=== PATIENT | female | born 1935 | race Hispanic/Latino ===

== ENCOUNTER 2017-04-20 16:35 | Emergency (ER) | payer MEDICARE ==
[~2017-04-20 16:35] MED LIST: Sodium Chloride 0.9% 1,000 ML IV ONE
[2017-04-20 16:36] VITALS: BMI 34.7
[2017-04-20 16:55] VITALS: TEMP 98; O2SAT 95
--- NOTE | 2017-04-20 17:26 | C.PDOC ---
History Of Present Illness 82 y/o female brought in by EMS presents to ED for evaluation of laceration to right lower leg. Pt states she accidentally kicked a coffee table with metal edge sustaining laceration [employer], near syncopal episode when she saw the blood. Pt reports difficulty controlling bleeding with compressions. Denies any other injury. Chief Complaint (Nursing): Abnormal Skin Integrity History Per: Patient History/Exam Limitations: no limitations Onset/Duration Of Symptoms: Mins Current Symptoms Are (Timing): Still Present Severity: Moderate Recent travel outside of the [place]: No Past Medical History Reviewed: Historical Data, Nursing Documentation, Vital Signs Vital Signs: Last Vital Signs Temp 98 F 04/20/17 16:47 Pulse 74 04/20/17 17:40 Resp 14 04/20/17 17:40 BP 132/63 04/20/17 17:40 Pulse Ox 95 04/20/17 17:40 - Medical History PMH: Cardia Arrhythmia Denies: Chronic Kidney Disease Surgical History: Cholecystectomy, Coronary Stent (2017) - [facility] Procedures BILAT REDUCT MAMMOPLASTY (08/11/05) PACKED CELL TRANSFUSION (08/11/05) Family History: States: Unknown Family Hx - Social History Hx Alcohol Use: No Hx Substance Use: No - Immunization History Hx Tetanus Toxoid Vaccination: No Hx Influenza Vaccination: No Review Of Systems Except As Marked, All Systems Reviewed And Found Negative. Skin: Positive for: Other (laceration to right lower leg) Physical Exam - Physical Exam Appears: Non-toxic, No Acute Distress Skin: Warm, Dry, No Rash, Other (2 cm skin tear to right lower leg, no active bleeding) Head: Atraumatic, Normacephalic Chest: Symmetrical Cardiovascular: Rhythm Regular, No Murmur Respiratory: Normal Breath Sounds, No Rales, No Rhonchi, No Wheezing Extremity: Normal ROM, Capillary Refill (<2 seconds), No Swelling Neurological/Psych: Oriented x3, Normal Speech, Normal Motor, Normal Sensation ED Course And Treatment O2 Sat by Pulse Oximetry: 95 (room air) Pulse Ox Interpretation: Normal Progress Note: small skin tear, aggregate 2 cm, bleeding resolved,. probably nicked a small varicosity. defer w/u w informed consent. Wound cleaned and bandaged. Medical Decision Making Medical Decision Making: ? brief vasovagal episode during the bleeding. arrived normal vs's and normal exam. Disposition Doctor Will See Patient In The: Office Counseled Patient/Family Regarding: Studies Performed, Diagnosis - Disposition Referrals: Madhu Orta MD [Medical Doctor] - Disposition: HOME/ ROUTINE Disposition Time: 17:25 Condition: GOOD Additional Instructions: keep small pressure bandage and elevate leg if bleeding occurs. continue normal blood thinners. Follow-up with your doctor as usual. Instructions: Skin Tear (ED) - Clinical Impression Clinical Impression: Skin tear - Scribe Statement The provider has reviewed the documentation as recorded by the Elisabeth Suresh Provider Attestation: All medical record entries made by the Elisabeth were at my direction and personally dictated by me. I have reviewed the chart and agree that the record accurately reflects my personal performance of the history, physical exam, medical decision making, and the department course for this patient. I have also personally directed, reviewed, and agree with the discharge instructions and disposition.
[2017-04-20] MEDS ORDERED: Bacitracin 500 Units/gm Oint Foilpak UD ONE (17:27)
[2017-04-20 17:41] VITALS: BP 132/63; PULSE 74; RESP 14
[2017-04-20] MEDS ORDERED: Bacitracin Ointment 30 GM TUBE TOP STA (17:43)
--- NOTE | 2017-04-24 11:10 | CARD ---
APPROVED REPORT EKG Measurement Heart [id number] <Conclusion> Normal sinus rhythm with sinus arrhythmia Moderate voltage criteria for LVH, may be normal variant Possible Lateral infarct, age undetermined Inferior infarct, age undetermined Abnormal ECG
== END 2017-04-20 18:11 | disposition home or self-care (01) ==
LOC: C.ER 16:35
DX: S81.811A Laceration without foreign body, right lower leg, initial encounter (principal); W22.03XA Walked into furniture, initial encounter
CPT/HCPCS: 96360; 99284; J7040

== ENCOUNTER 2018-08-23 19:44 | Inpatient (IN) | payer MEDICARE ==
[2018-08-23 19:44] VITALS: BMI 34.7
[2018-08-23 21:11] LABS: HEMOGLOBIN 11.1 g/dL (11.0-16.0); MEAN CELL VOLUME 85.4 fL (81.0-99.0); MEAN CORPUSCULAR HEMOGLOBIN 28.9 pg (27.0-31.0); RBC 3.85 Mil/uL (3.80-5.20); WHITE BLOOD COUNT 10.7 K/uL (4.8-10.8)
[2018-08-23 21:12] LABS: BASO # 0.1 K/uL (0.0-0.2); BASO % 0.9 % (0.0-2.0); EOS # 0.5 K/uL (0.0-0.7); EOS % 4.2 % (0.0-4.0); LYMPH # 1.1 K/uL (1.0-4.3); LYMPH % 10.5 % (20.0-40.0); MEAN CORPUSCULAR HGB CONC 33.9 g/dL (33.0-37.0); MONO # 0.8 K/uL (0.0-0.8); MONO % 7.5 % (0.0-10.0); NEUT # 8.2 K/uL (1.8-7.0); NEUT % 76.9 % (50.0-75.0); NRBC % 0.1 % (0.0-2.0); RED CELL DISTRIBUTION WIDTH 15.1 % (11.5-14.5)
[2018-08-23 21:23] LABS: INR 1.1; PROTHROMBIN TIME 12.4 SECONDS (9.7-12.2)
--- NOTE | 2018-08-23 21:23 | C.PDOC ---
History Of Present Illness 83 year old female, BIB son, presents to the ED for evaluation after experiencing two falls earlier in the weeks while sleeping. Patient was seen in the ED s/p first fall, however, today she complains of sharp RLQ pain. The patient also reports pain radiating to the area of bruising on her buttock. She denies any blood or dark stool. The patient has cadiac stents in place. As per son, the patient does not have a Hx of strokes. No hip pain. The patient denies any fever, nausea, vomiting or diarrhea. 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 Time Seen by Provider: 08/23/18 21:22 Chief Complaint (Nursing): Abdominal Pain History Per: Patient History/Exam Limitations: no limitations Onset/Duration Of Symptoms: Days Current Symptoms Are (Timing): Still Present Context: Other (Recent fall) Severity: Moderate Pain Scale Rating Of: 5 Location Of Pain/Discomfort: RLQ Quality Of Discomfort: Sharp Associated Symptoms: denies: Fever, Nausea, Vomiting Recent travel outside of the [place]: No Past Medical History Reviewed: Historical Data, Nursing Documentation, Vital Signs Vital Signs: Last Vital Signs Temp 98.5 F 08/23/18 20:19 Pulse 68 08/23/18 20:19 Resp 20 08/23/18 20:19 BP 165/68 H 08/23/18 20:19 Pulse Ox 96 08/23/18 20:19 - Medical History PMH: Cardia Arrhythmia, HTN Denies: Chronic Kidney Disease Surgical History: Cholecystectomy, Coronary Stent (2017) - [facility] Procedures BILAT REDUCT MAMMOPLASTY (08/11/05) PACKED CELL TRANSFUSION (08/11/05) Family History: States: Unknown Family Hx - Social History Hx Alcohol Use: No Hx Substance Use: No - Immunization History Hx Tetanus Toxoid Vaccination: No Hx Influenza Vaccination: No Hx Pneumococcal Vaccination: No Review Of Systems Constitutional: Negative for: Fever, Chills Eyes: Negative for: Pain ENT: Negative for: Ear Pain Cardiovascular: Negative for: Chest Pain, Palpitations, Orthopnea, Edema Respiratory: Negative for: Cough, SOB with Excertion, Pleuritic Pain Gastrointestinal: Positive for: Abdominal Pain (RLQ). Negative for: Nausea, Vomiting, Diarrhea, Melena, Other (bloody stool) Genitourinary: Negative for: Dysuria, Frequency, Incontinence, Hematuria, Vaginal Discharge, Vaginal Bleeding Musculoskeletal: Negative for: Neck Pain, Shoulder Pain Skin: Positive for: Bruising (from previous falls). Negative for: Rash, Lesions Neurological: Negative for: Weakness Psych: Negative for: Anxiety Physical Exam - Physical Exam Appears: Non-toxic, No Acute Distress Skin: Warm, Dry, Ecchymosis (and contusions to right side of face and on b/l buttock) Head: Normacephalic Eye(s): bilateral: Normal Inspection, PERRL, EOMI Oral Mucosa: Moist Lips: Normal Appearing, No Swelling, No Contusion Throat: No Erythema Neck: Trachea Midline, Supple, Other (No meningeal signs- negative kernig's and brudzinskis) Chest: Symmetrical Cardiovascular: Rhythm Regular, No Friction Rub Respiratory: Normal Breath Sounds, No Rales, No Rhonchi, No Wheezing Gastrointestinal/Abdominal: Soft (RLQ), Tenderness, No Organomegaly, No Mass, No Distention Back: No CVA Tenderness, No Vertebral Tenderness, No Decreased ROM Extremity: Normal ROM, No Tenderness, No Calf Tenderness Extremity: Bilateral: Normal Color And Temperature Pulses: Left Dorsalis Pedis: Normal, Right Dorsalis Pedis: Normal Neurological/Psych: Oriented x3, Normal Speech, Normal Cognition, Normal Cranial Nerves, No Cerebellar Signs, Normal Motor, Normal Sensation Gait: Steady Extremity: Right: No Drift, Left: No Drift, Upper: No Drift, Lower: No Drift ED Course And Treatment - Laboratory Results Result Diagrams: 08/23/18 21:08 08/23/18 21:08 O2 Sat by Pulse Oximetry: 96 (RA) Pulse Ox Interpretation: Normal Medical Decision Making Medical Decision Making: Impression: 83 y/o female who experienced 2 falls earlier in the week complains of sharp, RLQ pain. No vaginal bleeding, no dark or bloody stool. Contusion noted to b/l buttocks. No signs of skin breakdown. Full ROM to b/l hips w/ out pain. Good n/v status distal. Given Abd pain will seek CT, as well as CT head for recent fall. No other pain besides RLQ pain. Plan: -CT abdomen and pelvis -CT w/o contrast -Creatine -Lipase -Troponin I labs unremarkable CTH unremarkable CTAP Diffuse mesenteric lymphadenitis no wbc no fever, but given recurrent falls will seek obs for eval endorsed to pt and family of liver cyst and ct findings- to be evaluated appreciate consultation w/ Dr. Gunter: to obs to his service Disposition - Disposition Disposition Time: 00:30 Condition: GOOD Forms: [facility] (Armenian) - Clinical Impression Clinical Impression: Falls, Mesenteric lymphadenitis - Scribe Statement The provider has reviewed the documentation as recorded by the Elisabeth Patel Provider Attestation: All medical record entries made by the Elisabeth were at my direction and personally dictated by me. I have reviewed the chart and agree that the record accurately reflects my personal performance of the history, physical exam, medical decision making, and the department course for this patient. I have also personally directed, reviewed, and agree with the discharge instructions and disposition.
[2018-08-23 21:24] LABS: ALB/GLOB RATIO 1.5 (1.0-2.1); ALBUMIN 3.8 g/dL (3.5-5.0); ALT/SGPT 34 U/L (9-52); AST/SGOT 31 U/L (14-36); BLOOD UREA NITROGEN 26 mg/dL (7-17); GFR NON-AFRICAN AMERICAN > 60
[2018-08-23 21:26] LABS: SQUAMOUS EPITHIAL 8 /hpf (0-5); URINE BACTERIA RARE (<OCC); URINE BILIRUBIN NEGATIVE (NEGATIVE); URINE BLOOD NEGATIVE (NEGATIVE); URINE CLARITY Clear (Clear); URINE COLOR Yellow (YELLOW); URINE GLUCOSE (UA) NORMAL (Normal); URINE LEUKOCYTE ESTERASE NEG Leu/uL (Negative); URINE PROTEIN NEGATIVE (NEGATIVE)
[2018-08-23 22:20] LABS: LIPASE 332 U/L (23-300)
[2018-08-23] MEDS ORDERED: Iodixanol 320 MG/ML 100 ML BOTTLE IV ONE (22:33)
--- NOTE | 2018-08-24 07:55 | CT ---
Date of service: 08/23/2018 PROCEDURE: CT HEAD WITHOUT CONTRAST. HISTORY: Head injury. COMPARISON: None available. TECHNIQUE: Axial computed tomography images were obtained through the head/brain without intravenous contrast. Radiation dose: Total exam DLP = 1013.12 mGy-cm. This CT exam was performed using one or more of the following dose reduction techniques: Automated exposure control, adjustment of the mA and/or kV according to patient size, and/or use of iterative reconstruction technique. FINDINGS: HEMORRHAGE: No intracranial hemorrhage. BRAIN: No mass effect or edema. Scattered focal lucencies in the subcortical and periventricular white matter suggestive for chronic microvascular ischemic change. Focal hypodensity seen within the left caudate head suggestive for chronic infarct with some focal mild ex vacuo dilatation of the anterior horn of the left lateral ventricle. Mild cerebral and cerebellar atrophy. VENTRICLES: Unremarkable. No hydrocephalus. CALVARIUM: Unremarkable. PARANASAL SINUSES: Unremarkable as visualized. No significant inflammatory changes. MASTOID AIR CELLS: Unremarkable as visualized. No inflammatory changes. OTHER FINDINGS: None. IMPRESSION: No acute intracranial abnormality. Chronic microvascular ischemic changes. Atrophy. Focal hypodensity seen within the left caudate head suggestive for chronic infarct with some focal mild ex vacuo dilatation of the anterior horn of the left lateral ventricle. If symptoms persist, consider correlation with MRI. A preliminary report was generated at 10:56 p.m. on 08/23/[address] Wolfgang Trujillo from [facility].
[2018-08-24] MEDS ORDERED: Home Med 1 UNIT (Meloxicam [Mobic] 7.5 MG) PO SCH (10:00)
[2018-08-24] MEDS ORDERED: Losartan 12.5 MG TAB PO SCH (10:00)
--- NOTE | 2018-08-24 10:20 | CT ---
Date of service: 08/23/2018 PROCEDURE: CT Abdomen and Pelvis with contrast HISTORY: buttocks pain, fall COMPARISON: CT scan of the abdomen and pelvis dated 07/26/2016. TECHNIQUE: Contrast dose: 100 mL Visipaque 320 Radiation dose: Total exam DLP = 805.72 mGy-cm. This CT exam was performed using one or more of the following dose reduction techniques: Automated exposure control, adjustment of the mA and/or kV according to patient size, and/or use of iterative reconstruction technique. FINDINGS: LOWER THORAX: Cardiomegaly. Coronary arterial and valvular calcifications. Bibasilar atelectasis/scarring. Trace right pleural effusion. LIVER: Stable 3.6 cm medial right hepatic lobe and 1.0 cm inferior right hepatic lobe cysts. No gross lesion or ductal dilatation. GALLBLADDER AND BILE DUCTS: Prior cholecystectomy with surgical clips in place. PANCREAS: Unremarkable. No gross lesion or ductal dilatation. SPLEEN: Unremarkable. ADRENALS: Unremarkable. No mass. KIDNEYS AND URETERS: Stable 1.0 cm right lower pole cyst. No hydronephrosis. No solid mass. VASCULATURE: Unremarkable. No aortic aneurysm. Aortic atherosclerotic calcification and mural plaque present. BOWEL: Small hiatal hernia. Colonic diverticulosis. No obstruction. No gross mural thickening. APPENDIX: Normal appendix. PERITONEUM: Stable faint, subtle hazy change within the central mesentery. No free fluid. No free air. LYMPH NODES: Unremarkable. No enlarged lymph nodes. BLADDER: Unremarkable. REPRODUCTIVE: Prior hysterectomy. Pelvic floor prolapse. BONES: No acute fracture. Multilevel spinal degenerative changes OTHER FINDINGS: None. IMPRESSION: No acute abdominal pelvic pathology. Stable appearance of faint, subtle hazy change within the central mesentery. This is a nonspecific finding which can be seen with mesenteric edema, lymphedema, hemorrhage and infiltration with inflammatory or neoplastic cells. Additional stable findings as above.
[2018-08-24] MEDS: Enoxaparin 40 mg Syringe SC SCH (11:16)
[2018-08-24 11:21] LABS: HDL CHOLESTEROL 57 mg/dL (30-70)
[2018-08-24 11:39] LABS: LDL CHOLESTEROL < 30 mg/dL (0-129)
--- NOTE | 2018-08-24 14:37 | CP.PCM.CON ---
History of Present Illness - History of Present Illness History of Present Illness: COMPREHENSIVE CONSULT HPI 83 years old woman was brought to the emergency room by the son with a history of frequent falls with multiple contusion on the face and torso. Patient is vague about the exact events of dizziness and falling In March 2018 patient had a laceration of the lower extremity patient was evaluated in the ER at that time patient also had a syncopal episode which was labeled as vasovagal secondary to bleeding from the lower extremity Currently patient has no chest pain dizziness or any cardiac arrhythmias Patient has a history of coronary artery stent for full details currently is not available Patient also had a right lower quadrant pain and the CAT scan of the abdomen showed haziness in the mesentery PAST HIST. PERSONAL HIST: Smoking. N Alcohol. N Allergy N Travel_- . FAMILY HIST : ROS : Constitutional: Negative for weight change, chills, night sweats, Eyes: Negative for redness, swelling, itching, discharge, vision changes, blurry vision, double vision, glaucoma, cataracts, Ears: Negative for hearing loss, ringing, , tinnitus, vertigo Nose: Negative for rhinorrhea, stuffiness, sniffing, itching, postnasal drip, discoloration, nasal congestion and epistaxis. Throat: Negative for throat clearing, sore throat, hoarseness, difficulty swallowing and difficulty speaking. Respiratory: Negative for cough, , sputum production, chest tightness, wheezing, pleuritic chest pain ,daytime somnolence, chronic cough, hemoptysis, snoring at night, Cardiovascular: Negative for chest pain, palpitations, orthopnea, PND, Edema of legs, leg cramps, angina, claudication, , irregular heartbeat, Neurology: Negative for irritability, muscle weakness, numbness and tingling, seizures, tremors, migraines, slurred speech, , mood changes, recurrent headaches Gastrointestinal: Negative for difficulty swallowing, diarrhea, constipation, black stools, rectal bleeding, nausea, flatulence, reflux, poor appetite, changes in bowel habits, abdominal pain Genitourinary: Negative for frequent urination, hematuria, discharge, incontinence, urinary retention, frequent UTI, Psychiatric: Negative for depression, anxiety/panic, suicidal tendencies, Musculoskeletal: Negative for swollen joints, back pain, , neck pain, morning stiffness of joints, . Skin: Negative for rash, ulcers, itching, dry skin and pigmented lesions. P/E: Constitutional: Appears stated age and in no apparent distress. Head: Normocephalic. Ears: External ear canals patent without inflammation. Tympanic membranes intact with normal light reflex and landmark. Eyes: Pupils are central, bilaterally equal, symmetrical and reacts to light with normal movements and no icterus or pallor. Nose: External nares are patent. Mucosa is pink Mouth-Throat: Good general appearance and condition. No post-pharyngeal/oropharyngeal erythema and tonsillar hypertrophy. Good dental hygiene. Neck-Lymphatic: Neck is supple with normal ROM, no thyromegaly, lymph nodes or masses. JVD is normal with no carotid bruit. Lungs: Clear to percussion and auscultation with bilateral normal air entry. Cardiovascular: S1 and S2 are normal with no murmurs, gallops and rub. GI Exam: No hepatomegaly. Abdomen is soft and non-tender. No Organomegaly , masses or hernias are evident and bowel sounds are normal and active. Neurology: Higher function and all cranial nerves intact, with no gross motor or sensory deficit. Superficial and deep reflexes are normal with downwards planters. No cerebellar deficit with normal gait. Musculoskeletal: No tender spots with normal curvature of the spine with no swelling or restricted ROM of the small and large joints. There are multiple contusions on the face upper and lower extremities with stitches on the left elbow Extremities: Homans sign absent. Intact pulses with no pitting edema, calf tenderness or skin color changes. Skin: No rash, eruptions or abnormal skin pigmentation LAB/RADIOLOGY: ASSESMENT : Recurrent fall with history of coronary artery disease to rule out cardiac arrhythmias Rule out TIA Workup for the right lower quadrant pain PLAN: Neuro cardiac workup continue present medication. Past Patient History - Past Social History Smoking Status: Never Smoked - CARDIAC Hx Hypertension: Yes - PULMONARY Hx Respiratory Disorders: No - NEUROLOGICAL Hx Neurological Disorder: No - HEENT Hx HEENT Problems: Yes Hx Glaucoma: Yes - RENAL Hx Chronic Kidney Disease: No - ENDOCRINE/METABOLIC Hx Endocrine Disorders: No - HEMATOLOGICAL/ONCOLOGICAL Hx Blood Disorders: No - INTEGUMENTARY Hx Dermatological Problems: No - MUSCULOSKELETAL/RHEUMATOLOGICAL Hx Musculoskeletal Disorders: No Hx Falls: Yes - GASTROINTESTINAL Hx Gastrointestinal Disorders: No - PSYCHIATRIC Hx Substance Use: No - SURGICAL HISTORY Hx Cholecystectomy: Yes Hx Coronary Stent: Yes (2017) - ANESTHESIA Hx Anesthesia: Yes Hx Anesthesia Reactions: No Meds Allergies/Adverse Reactions: Allergies Allergy/AdvReac Type Severity Reaction Status Date / Time No Known Allergies Allergy Unverified 08/23/18 20:24 - Medications Medications: Current Medications Aspirin (Ecotrin) 81 mg PO DAILY [facility] Last Admin: 08/24/18 11:16 Dose: 81 mg Enoxaparin Sodium (Lovenox) 40 mg SC DAILY [facility] Last Admin: 08/24/18 11:16 Dose: 40 mg Escitalopram Oxalate (Lexapro) 5 mg PO DAILY [facility] Last Admin: 08/24/18 11:16 Dose: 5 mg Home Med (Meloxicam [Mobic]) 7.5 mg PO DAILY [facility] Influenza Virus Vaccine (Fluzone Quad [id number]) 60 mcg IM .ONCE ONE Stop: 08/25/18 10:01 Losartan Potassium (Cozaar) 25 mg PO DAILY [facility] Pneumococcal Polyvalent Vaccine (Pneumovax 23 Vaccine) 0.5 ml IM .ONCE ONE Stop: 08/25/18 10:01 Rosuvastatin Calcium (Crestor) 5 mg PO [facility] Results - Vital Signs Recent Vital Signs: Last Vital Signs Temp 98 F 08/24/18 07:49 Pulse 68 08/24/18 08:00 Resp 18 08/24/18 07:49 BP 164/93 H 08/24/18 07:49 Pulse Ox 97 08/24/18 07:49 - Labs Result Diagrams: 08/23/18 21:08 08/23/18 21:08 Labs: Laboratory Results - last 24 hr 08/23/18 08/23/18 08/23/18 21:08 21:08 21:08 WBC 10.7 RBC 3.85 Hgb 11.1 D Hct 32.9 L MCV 85.4 D MCH 28.9 MCHC 33.9 RDW 15.1 H Plt Count 235 MPV 9.0 Neut % (Auto) 76.9 H Lymph % (Auto) 10.5 L [place] % (Auto) 7.5 Eos % (Auto) 4.2 H Baso % (Auto) 0.9 Neut # (Auto) 8.2 H Lymph # (Auto) 1.1 [place] # (Auto) 0.8 Eos # (Auto) 0.5 Baso # (Auto) 0.1 PT INR APTT Sodium 138 Potassium 4.7 Chloride 102 Carbon Dioxide 27 Anion Gap 14 BUN 26 H Creatinine 0.8 Est GFR ( Amer) > 60 Est GFR (Non-Af Amer) > 60 Random Glucose 143 H Calcium 9.0 Phosphorus 4.0 Magnesium 2.1 Total Bilirubin 0.8 AST 31 ALT 34 Alkaline Phosphatase 51 Total Creatine Kinase Troponin I < 0.0120 Total Protein 6.3 Albumin 3.8 Globulin 2.5 Albumin/Globulin Ratio 1.5 Triglycerides Cholesterol LDL Cholesterol Direct HDL Cholesterol Lipase Carcinoembryonic Ag CA 19-9 Antigen CA 125 Antigen Urine Color Yellow Urine Clarity Clear Urine pH 5.0 Ur Specific [place] 1.023 Urine Protein Negative Urine Glucose (UA) Normal Urine Ketones Negative Urine Blood Negative Urine Nitrate Negative Urine Bilirubin Negative Urine Urobilinogen 2.0 H Ur Leukocyte Esterase Neg Urine WBC (Auto) 1 Urine RBC (Auto) 2 Ur Squamous Epith Cells 8 H Urine Bacteria Rare 08/23/18 08/23/18 08/24/18 21:08 22:12 10:50 WBC RBC Hgb Hct MCV MCH MCHC RDW Plt Count MPV Neut % (Auto) Lymph % (Auto) [place] % (Auto) Eos % (Auto) Baso % (Auto) Neut # (Auto) Lymph # (Auto) [place] # (Auto) Eos # (Auto) Baso # (Auto) PT 12.4 H INR 1.1 APTT 32 Sodium Potassium Chloride Carbon Dioxide Anion Gap BUN Creatinine Est GFR ( Amer) Est GFR (Non-Af Amer) Random Glucose Calcium Phosphorus Magnesium Total Bilirubin AST ALT Alkaline Phosphatase Total Creatine Kinase 66 41 Troponin I < 0.0120 Total Protein Albumin Globulin Albumin/Globulin Ratio Triglycerides 82 Cholesterol 94 LDL Cholesterol Direct < 30 HDL Cholesterol 57 Lipase 332 H Carcinoembryonic Ag 2.8 CA 19-9 Antigen 9.9 CA 125 Antigen 17.2 Urine Color Urine Clarity Urine pH Ur Specific [place] Urine Protein Urine Glucose (UA) Urine Ketones Urine Blood Urine Nitrate Urine Bilirubin Urine Urobilinogen Ur Leukocyte Esterase Urine WBC (Auto) Urine RBC (Auto) Ur Squamous Epith Cells Urine Bacteria
[2018-08-24 14:49] LABS: CK-MB 0.85 ng/mL (0.0-3.38)
[2018-08-24 16:13] VITALS: RESP 20
--- NOTE | 2018-08-24 20:06 | CP.PCM.HP ---
Past Patient History - Past Medical History & Family History Past Medical History?: Yes - Past Social History Smoking Status: Never Smoked - CARDIAC Hx Cardiac Disorders: Yes Hx Hypertension: Yes - PULMONARY Hx Respiratory Disorders: No - NEUROLOGICAL Hx Neurological Disorder: No - HEENT Hx HEENT Problems: Yes Hx Glaucoma: Yes - RENAL Hx Chronic Kidney Disease: No - ENDOCRINE/METABOLIC Hx Endocrine Disorders: No - HEMATOLOGICAL/ONCOLOGICAL Hx Blood Disorders: No - INTEGUMENTARY Hx Dermatological Problems: No - MUSCULOSKELETAL/RHEUMATOLOGICAL Hx Musculoskeletal Disorders: No Hx Falls: Yes - GASTROINTESTINAL Hx Gastrointestinal Disorders: No - PSYCHIATRIC Hx Substance Use: No - SURGICAL HISTORY Hx Surgeries: Yes Hx Cholecystectomy: Yes Hx Coronary Stent: Yes (2016) - ANESTHESIA Hx Anesthesia: Yes Hx Anesthesia Reactions: No Meds Allergies/Adverse Reactions: Allergies Allergy/AdvReac Type Severity Reaction Status Date / Time No Known Allergies Allergy Unverified 08/23/18 20:24 Results - Vital Signs Recent Vital Signs: Last Vital Signs Temp 983 F H 08/24/18 15:00 Pulse 79 08/24/18 16:00 Resp 20 08/24/18 15:00 BP 165/63 H 08/24/18 15:00 Pulse Ox 94 L 08/24/18 16:00 - Labs Result Diagrams: 08/23/18 21:08 08/23/18 21:08 Labs: Laboratory Results - last 24 hr 08/23/18 08/23/18 08/23/18 21:08 21:08 21:08 WBC 10.7 RBC 3.85 Hgb 11.1 D Hct 32.9 L MCV 85.4 D MCH 28.9 MCHC 33.9 RDW 15.1 H Plt Count 235 MPV 9.0 Neut % (Auto) 76.9 H Lymph % (Auto) 10.5 L [place] % (Auto) 7.5 Eos % (Auto) 4.2 H Baso % (Auto) 0.9 Neut # (Auto) 8.2 H Lymph # (Auto) 1.1 [place] # (Auto) 0.8 Eos # (Auto) 0.5 Baso # (Auto) 0.1 PT INR APTT Sodium 138 Potassium 4.7 Chloride 102 Carbon Dioxide 27 Anion Gap 14 BUN 26 H Creatinine 0.8 Est GFR ( Amer) > 60 Est GFR (Non-Af Amer) > 60 Random Glucose 143 H Calcium 9.0 Phosphorus 4.0 Magnesium 2.1 Total Bilirubin 0.8 AST 31 ALT 34 Alkaline Phosphatase 51 Total Creatine Kinase CK-MB (Mass) Troponin I < 0.0120 Total Protein 6.3 Albumin 3.8 Globulin 2.5 Albumin/Globulin Ratio 1.5 Triglycerides Cholesterol LDL Cholesterol Direct HDL Cholesterol Lipase Carcinoembryonic Ag CA 19-9 Antigen CA 125 Antigen Urine Color Yellow Urine Clarity Clear Urine pH 5.0 Ur Specific [place] 1.023 Urine Protein Negative Urine Glucose (UA) Normal Urine Ketones Negative Urine Blood Negative Urine Nitrate Negative Urine Bilirubin Negative Urine Urobilinogen 2.0 H Ur Leukocyte Esterase Neg Urine WBC (Auto) 1 Urine RBC (Auto) 2 Ur Squamous Epith Cells 8 H Urine Bacteria Rare 08/23/18 08/23/18 08/24/18 21:08 22:12 10:50 WBC RBC Hgb Hct MCV MCH MCHC RDW Plt Count MPV Neut % (Auto) Lymph % (Auto) [place] % (Auto) Eos % (Auto) Baso % (Auto) Neut # (Auto) Lymph # (Auto) [place] # (Auto) Eos # (Auto) Baso # (Auto) PT 12.4 H INR 1.1 APTT 32 Sodium Potassium Chloride Carbon Dioxide Anion Gap BUN Creatinine Est GFR ( Amer) Est GFR (Non-Af Amer) Random Glucose Calcium Phosphorus Magnesium Total Bilirubin AST ALT Alkaline Phosphatase Total Creatine Kinase 66 41 CK-MB (Mass) Troponin I < 0.0120 Total Protein Albumin Globulin Albumin/Globulin Ratio Triglycerides 82 Cholesterol 94 LDL Cholesterol Direct < 30 HDL Cholesterol 57 Lipase 332 H Carcinoembryonic Ag 2.8 CA 19-9 Antigen 9.9 CA 125 Antigen 17.2 Urine Color Urine Clarity Urine pH Ur Specific [place] Urine Protein Urine Glucose (UA) Urine Ketones Urine Blood Urine Nitrate Urine Bilirubin Urine Urobilinogen Ur Leukocyte Esterase Urine WBC (Auto) Urine RBC (Auto) Ur Squamous Epith Cells Urine Bacteria 08/24/18 14:08 WBC RBC Hgb Hct MCV MCH MCHC RDW Plt Count MPV Neut % (Auto) Lymph % (Auto) [place] % (Auto) Eos % (Auto) Baso % (Auto) Neut # (Auto) Lymph # (Auto) [place] # (Auto) Eos # (Auto) Baso # (Auto) PT INR APTT Sodium Potassium Chloride Carbon Dioxide Anion Gap BUN Creatinine Est GFR ( Amer) Est GFR (Non-Af Amer) Random Glucose Calcium Phosphorus Magnesium Total Bilirubin AST ALT Alkaline Phosphatase Total Creatine Kinase 39 CK-MB (Mass) 0.85 Troponin I < 0.0120 Total Protein Albumin Globulin Albumin/Globulin Ratio Triglycerides Cholesterol LDL Cholesterol Direct HDL Cholesterol Lipase Carcinoembryonic Ag CA 19-9 Antigen CA 125 Antigen Urine Color Urine Clarity Urine pH Ur Specific [place] Urine Protein Urine Glucose (UA) Urine Ketones Urine Blood Urine Nitrate Urine Bilirubin Urine Urobilinogen Ur Leukocyte Esterase Urine WBC (Auto) Urine RBC (Auto) Ur Squamous Epith Cells Urine Bacteria
--- NOTE | 2018-08-24 21:26 | CARD ---
APPROVED REPORT Date of service: 08/23/2018 EKG Measurement Heart [id number] <Conclusion> Sinus rhythm with marked sinus arrhythmia Voltage criteria for left ventricular hypertrophy Abnormal ECG
--- NOTE | 2018-08-25 06:01 | HP ---
CHIEF COMPLAINT: Fall. HISTORY OF PRESENT ILLNESS: This is an 83-year-old female with history of hypertension. The patient is a poor historian and not able to give enough information. I spoke to her son. According to son, two years ago the patient had a stroke. She was told that it is an ischemic stroke. The stroke affected her gait, her memory, her speech, and vision. Since then, she has been followed up by a doctor. She has been taking medications. She has been compliant with diet, medication and followup. In 03/2018, she had a laceration to left lower extremity. At that time, the patient was seen in the emergency room. She told the doctor that the patient had a syncopal episode and was considered to be vasovagal syncope. The patient was sent home. According to her, she had a fall. The patient had multiple falls. She denies any dizziness, chest pain, or shortness of breath. She denies any nausea, vomiting, or diarrhea. She denies any polyuria, polydipsia, or polyphagia. She denies any sneezing, itchy eyes, itchy nose. She denies any diplopia. She denies any history of vertigo. According to the patient, she had a bruise and hematoma on the face. According to the patient, she has joint pain, leg pain, and knee pain. She denies any tingling, numbness, or paresthesia. She denies any speech problems. She denies any history of loss of vision. She denies any history of abdominal pain, nausea, vomiting, or diarrhea. She denies any history of urinary complaints. At times, she is continent of urine and at times she is incontinent. She denies any history of sore throat, hoarseness, difficulty swallowing and speech. She denies any history of irritability, muscle weakness, numbness, tingling, seizure, tremor, migraine, slurring speech, mood changes, recurrent headache. She denies any history of dysphagia, nausea, vomiting, or diarrhea. She denies any rectal bleeding or any change in bowel habits. PAST MEDICAL HISTORY: Hypertension, CVA, hyperlipidemia. SOCIAL HISTORY: Nonsmoker, non-EtOH user. CURRENT MEDICATIONS: At home, she is on Cozaar, aspirin, Mobic, Crestor, Lexapro. PHYSICAL EXAMINATION: GENERAL: An elderly female, in no acute distress with periorbital bruising. VITAL SIGNS: Blood pressure 165/63, pulse 79, respiratory rate 20, temperature 98.3. SKIN: She has multiple bruises on the face. HEENT: Evidence of trauma. Normocephalic. Negative pallor. Negative jaundice. Extraocular movements are intact. NECK: Supple. No JVD. CHEST WALL: Bilateral symmetrical expansion. BREASTS: No masses. No nipple discharge. LUNGS: Clear. No rales. No rhonchi. Bilateral equal air entry. CARDIOVASCULAR SYSTEM: S1 and S2 are regular. No heave, no thrill, no murmur. ABDOMEN: Soft, nontender. Bowel sounds are positive. No organomegaly. GENITOURINARY: No rectal masses. No hemorrhoids. CENTRAL NERVOUS SYSTEM: The patient is awake, alert, and oriented x3. Cranial nerves II through XII are normal. Power 5/5 x4. Plantars are downgoing. The patient is slow to walk, but she is able to walk. MUSCULOSKELETAL: There is no evidence of any spine deformity or joint damage. EXTREMITIES: No clubbing, cyanosis, or edema. ASSESSMENT: 1. Fall, most likely it is a mechanical fall. I spoke to sons. They do not think the patient complaints of any vertigo and they do agree that the patient probably needs a cane or a walker depending on her needs. 2. Hypertension. 3. Hyperlipidemia. PLAN: Admit. Details orders written. Seen and examined. Seamus Gunter MD
[2018-08-25 08:22] VITALS: O2SAT 96
[2018-08-25] MEDS ORDERED: Pneumococcal 23-Valent Vaccine IM ONE ×2 (10:00→12:53)
[2018-08-25] MEDS ORDERED: Home Med 1 UNIT (Meloxicam [Mobic] 7.5 MG) PO SCH (10:00)
[2018-08-25] MEDS ORDERED: Influenza Vaccine 60 MCG/0.5 ML SYR (3 yr & up) IM ONE ×2 (10:00→12:52)
[2018-08-25] MEDS: Enoxaparin 40 mg Syringe SC SCH (10:13)
--- NOTE | 2018-08-25 11:37 | PN ---
DATE: 08/25/2018 LOCATION: 665, bed B. SUBJECTIVE: This is an 83-year-old female seen and examined initially for GI consultation on 08/24/2018, reexamined again today with a complaint of right-sided facial pain as well as intermittent abdominal and lower back pain with less oral intake recently, but no actual chest pain, palpitation, or significant shortness of breath this morning. The entire chart is reviewed including but not limited to most recent lab and radiology study results, current and the previous medication list, current and the previous medical events. Today's lab results still pending; however, the patient reported to have normal troponin level and normal cancer markers but lipase of 332, elevated. PHYSICAL EXAMINATION: GENERAL: An 83-year-old female, awake, alert and oriented, complaining of abdominal pain. VITAL SIGNS: The patient is afebrile with pulse of 66, respiratory rate 20 to 22, blood pressure of 160/74. HEENT: Ecchymotic changes and stitches at the right facial side. LYMPH NODES: No lymphadenitis or lymphadenopathy. ABDOMEN: Soft with mild generalized tenderness. No mass or organomegaly. No rebound tenderness or guarding, but abdominal distention. EXTREMITIES: Without significant clubbing, cyanosis or edema. NEUROLOGIC: No reported new neurological deficits, sensory or motor. LABORATORY DATA: Official report of the CAT scan of the abdomen and pelvis is seen. IMPRESSION: 1. Status post fall. 2. Mild anemia that could be secondary to chronic disease. No evidence of active gastrointestinal bleeding. 3. Known history of hypertension with cardiac arrhythmias. 4. Coronary artery disease with status post cardiac stent insertion. 5. Status post cholecystectomy. 6. Re-exacerbation of peptic ulcer disease. 7. Hyperglycemia by recent history. SUGGESTIONS: 1. Continue current management. 2. Guaiac all the stools daily x3. 3. Due to the abnormal CAT scan of the abdomen and pelvis, Hematology/Oncology evaluation to be considered. Geovany Leyva MD
--- NOTE | 2018-08-25 14:36 | CP.PCM.PN ---
Subjective - Date & Time of Evaluation Date of Evaluation: 08/25/18 Time of Evaluation: 14:29 - Subjective Subjective: CHIEF COMPLAINTS TODAY : Patient offers no specific cardiac complaints. ROS. HEENT : N. Resp : No cough, wheezing ,pleuritic CP ,or hemoptysis Cardio : No anginal CP, PND, orthopnea, palpitation GI : No n/v ,diarrhea or GI bleeding . SPECIALTY COOK : No headache, vertigo, focal deficit. Musculoskel : No joint swelling , Derm : No rash Psych : Normal affect. Ext : No swelling ,calf pain PE. Pt. is alert awake in no distress. V.S As noted in the chart Head ,ear nose,throat and eyes : Normal. Neck : Supple with normal carotids. Lungs: Clear air entry. Heart : S1 & S2 normal with S4. No murmur. Abd : Soft non tender with normal bowel sounds. Neuro : Moves all ext. with no localized deficit. Ext : No edema with intact pulses.Non tender calves multiple bruises on the face and the right side of extremities with stitches on the elbow Derm : No rashes or decubitus ulcer. LABS/RADIOLOGY: 3 sets of troponin are negative ASSESSMENT/PLAN : Check echo report Cardiac monitoring shows no cardiac arrhythmia. Objective - Vital Signs/Intake and Output Vital Signs (last 24 hours): Temp Pulse Resp BP Pulse Ox 97.4 F L 65 20 154/57 H 96 08/25/18 08:20 08/25/18 12:57 08/25/18 08:20 08/25/18 08:20 08/25/18 08:20 Intake and Output: 08/25/18 08/25/18 11:59 23:59 Intake Total 100 Balance 100 - Medications Medications: Current Medications Acetaminophen (Tylenol 325mg Tab) 650 mg PO Q6 PRN PRN Reason: Pain, moderate (4-7) Last Admin: 08/24/18 21:40 Dose: 650 mg Aspirin (Ecotrin) 81 mg PO DAILY [facility] Last Admin: 08/25/18 10:12 Dose: 81 mg Enoxaparin Sodium (Lovenox) 40 mg SC DAILY [facility] Last Admin: 08/25/18 10:13 Dose: 40 mg Escitalopram Oxalate (Lexapro) 5 mg PO DAILY [facility] Last Admin: 08/25/18 10:13 Dose: 5 mg Home Med (Meloxicam [Mobic]) 7.5 mg PO DAILY [facility] Losartan Potassium (Cozaar) 50 mg PO DAILY [facility] Last Admin: 08/25/18 10:12 Dose: 50 mg Rosuvastatin Calcium (Crestor) 5 mg PO HS [facility] Last Admin: 08/24/18 21:40 Dose: 5 mg - Labs Labs: 08/23/18 21:08 08/23/18 21:08 PT 12.4 SECONDS (9.7-12.2) H 08/23/18 21:08 INR 1.1 08/23/18 21:08 APTT 32 SECONDS (21-34) 08/23/18 21:08
--- NOTE | 2018-08-25 15:10 | CARD ---
APPROVED REPORT Date of service: 08/24/2018 EXAM: Two-dimensional and M-mode echocardiogram with Doppler and color Doppler. INDICATION Syncope 2D DIMENSIONS IVSd0.9 (0.7-1.1cm)LVDd4.9 (3.9-5.9cm) LVOT Diameter1.8 (1.8-2.4cm)PWd0.9 (0.7-1.1cm) LA Trkzdx33 (18-58mL)LVDs2.7 (2.5-4.0cm) FS (%) 46.2 %LVEF (%)77.4 (>50%) LVEF (Corey's)66.93 % M-Mode DIMENSIONS Left Atrium (MM)5.03 (2.5-4.0cm)IVSd1.07 (0.7-1.1cm) Aortic Root3.14 (2.2-3.7cm)LVDd5.56 (4.0-5.6cm) Aortic Cusp Exc.1.91 (1.5-2.0cm)PWd1.02 (0.7-1.1cm) FS (%) 41 %LVDs3.28 (2.0-3.8cm) LVEF (%)71 (>50%) Aortic Valve AoV Peak Yhidtfsi040.5cm/sAoV VTI77.3cmAO Peak GR.43mmHg LVOT Peak Kyjzzbzt323.3cm/sLVOT VTI48.75cmAO Mean GR.27mmHg MAITE (VMAX)1.76oi0AIO (VTI)1.31nv9ZX P 1/2 Jupw766ob Mitral Valve MV E Oikgsarn955.8cm/sMV A Zquytfnd780.8cm/s TDI Lateral E' Peak V7.32cm/sMedial E' Peak V5.19cm/s Pulmonary Valve PV Peak Kyyeyilg034.8cm/sPV Peak Grad.7mmHg Tricuspid Valve TR Peak Sbosvhuu836wx/sTR Peak Gr.57oeHhFZDG90vzOy LEFT VENTRICLE The left ventricle is normal size. There is normal left ventricular wall thickness. Left ventricle systolic function is normal. The Ejection Fraction is >70%. There is normal LV segmental wall motion. The left ventricular diastolic function is normal. RIGHT VENTRICLE The right ventricle is normal size. There is normal right ventricular wall thickness. The right ventricular systolic function is normal. ATRIA The left atrium size is normal. The right atrium size is normal. The interatrial septum is intact with no evidence for an atrial septal defect. AORTIC VALVE The aortic valve is normal in structure. There is mild to moderate aortic regurgitation. There is mild to moderate valvular aortic stenosis. MITRAL VALVE The mitral valve is normal in structure. There is no evidence of mitral valve prolapse. There is no mitral valve stenosis. Mitral regurgitation is mild. TRICUSPID VALVE The tricuspid valve is normal in structure. There is fnbk-yt-qmovvlgq tricuspid regurgitation. Right ventricular systolic pressure is estimated at 50-60 mmHg. There is moderate-severe pulmonary hypertension. PULMONIC VALVE The pulmonic valve is not well visualized. There is no pulmonic valvular regurgitation. GREAT VESSELS The aortic root is normal in size. PERICARDIAL EFFUSION There is no significant pericardial effusion. <Conclusion> Left ventricle systolic function is normal. The Ejection Fraction is >70%. There is mild to moderate aortic regurgitation. There is mild to moderate valvular aortic stenosis. Mitral regurgitation is mild. There is vijn-lu-tpvyoyao tricuspid regurgitation. There is moderate-severe pulmonary hypertension. There is no pulmonic valvular regurgitation.
[2018-08-25 15:50] VITALS: BP 152/60; TEMP 98.1
[2018-08-25 16:03] VITALS: PULSE 59
--- NOTE | 2018-08-26 21:43 | CP.PCM.DIS ---
Provider - Provider Date of Admission: 08/24/18 18:08 Attending physician: Seamus Gunter MD Consults: dictated Hospital Course - Lab Results Lab Results: Most Recent Lab Values WBC 10.7 K/uL (4.8-10.8) 08/23/18 21:08 RBC 3.85 Mil/uL (3.80-5.20) 08/23/18 21:08 Hgb 11.1 g/dL (11.0-16.0) D 08/23/18 21:08 Hct 32.9 % (34.0-47.0) L 08/23/18 21:08 MCV 85.4 fL (81.0-99.0) D 08/23/18 21:08 MCH 28.9 pg (27.0-31.0) 08/23/18 21:08 MCHC 33.9 g/dL (33.0-37.0) 08/23/18 21:08 RDW 15.1 % (11.5-14.5) H 08/23/18 21:08 Plt Count 235 K/uL (130-400) 08/23/18 21:08 MPV 9.0 fL (7.2-11.7) 08/23/18 21:08 Neut % (Auto) 76.9 % (50.0-75.0) H 08/23/18 21:08 Lymph % (Auto) 10.5 % (20.0-40.0) L 08/23/18 21:08 [place] % (Auto) 7.5 % (0.0-10.0) 08/23/18 21:08 Eos % (Auto) 4.2 % (0.0-4.0) H 08/23/18 21:08 Baso % (Auto) 0.9 % (0.0-2.0) 08/23/18 21:08 Neut # (Auto) 8.2 K/uL (1.8-7.0) H 08/23/18 21:08 Lymph # (Auto) 1.1 K/uL (1.0-4.3) 08/23/18 21:08 [place] # (Auto) 0.8 K/uL (0.0-0.8) 08/23/18 21:08 Eos # (Auto) 0.5 K/uL (0.0-0.7) 08/23/18 21:08 Baso # (Auto) 0.1 K/uL (0.0-0.2) 08/23/18 21:08 PT 12.4 SECONDS (9.7-12.2) H 08/23/18 21:08 INR 1.1 08/23/18 21:08 APTT 32 SECONDS (21-34) 08/23/18 21:08 Sodium 138 mmol/L (132-148) 08/23/18 21:08 Potassium 4.7 mmol/L (3.6-5.2) 08/23/18 21:08 Chloride 102 mmol/L (98-107) 08/23/18 21:08 Carbon Dioxide 27 mmol/L (22-30) 08/23/18 21:08 Anion Gap 14 (10-20) 08/23/18 21:08 BUN 26 mg/dL (7-17) H 08/23/18 21:08 Creatinine 0.8 mg/dL (0.7-1.2) 08/23/18 21:08 Est GFR ( Amer) > 60 08/23/18 21:08 Est GFR (Non-Af Amer) > 60 08/23/18 21:08 Random Glucose 143 mg/dL (65-105) H 08/23/18 21:08 Calcium 9.0 mg/dl (8.6-10.4) 08/23/18 21:08 Phosphorus 4.0 mg/dL (2.5-4.5) 08/23/18 21:08 Magnesium 2.1 mg/dL (1.6-2.3) 08/23/18 21:08 Total Bilirubin 0.8 mg/dL (0.2-1.3) 08/23/18 21:08 AST 31 U/L (14-36) 08/23/18 21:08 ALT 34 U/L (9-52) 08/23/18 21:08 Alkaline Phosphatase 51 U/L (38-126) 08/23/18 21:08 Total Creatine Kinase 39 U/L (30-135) 08/24/18 14:08 CK-MB (Mass) 0.85 ng/mL (0.0-3.38) 08/24/18 14:08 Troponin I < 0.0120 ng/mL (0.00-0.120) 08/24/18 14:08 Total Protein 6.3 g/dL (6.3-8.3) 08/23/18 21:08 Albumin 3.8 g/dL (3.5-5.0) 08/23/18 21:08 Globulin 2.5 gm/dL (2.2-3.9) 08/23/18 21:08 Albumin/Globulin Ratio 1.5 (1.0-2.1) 08/23/18 21:08 Triglycerides 82 mg/dL (0-149) 08/24/18 10:50 Cholesterol 94 mg/dL (0-199) 08/24/18 10:50 LDL Cholesterol Direct < 30 mg/dL (0-129) 08/24/18 10:50 HDL Cholesterol 57 mg/dL (30-70) 08/24/18 10:50 Lipase 332 U/L (23-300) H 08/23/18 22:12 Carcinoembryonic Ag 2.8 ng/mL (0-3.0) 08/24/18 10:50 CA 19-9 Antigen 9.9 U/mL (0-37) 08/24/18 10:50 CA 125 Antigen 17.2 U/mL (0-35) 08/24/18 10:50 Urine Color Yellow (YELLOW) 08/23/18 21:08 Urine Clarity Clear (Clear) 08/23/18 21:08 Urine pH 5.0 (5.0-8.0) 08/23/18 21:08 Ur Specific [place] 1.023 (1.003-1.030) 08/23/18 21:08 Urine Protein Negative mg/dL (NEGATIVE) 08/23/18 21:08 Urine Glucose (UA) Normal mg/dL (Normal) 08/23/18 21:08 Urine Ketones Negative mg/dL (NEGATIVE) 08/23/18 21:08 Urine Blood Negative (NEGATIVE) 08/23/18 21:08 Urine Nitrate Negative (NEGATIVE) 08/23/18 21:08 Urine Bilirubin Negative (NEGATIVE) 08/23/18 21:08 Urine Urobilinogen 2.0 mg/dL (0.2-1.0) H 08/23/18 21:08 Ur Leukocyte Esterase Neg [place]/uL (Negative) 08/23/18 21:08 Urine WBC (Auto) 1 /hpf (0-5) 08/23/18 21:08 Urine RBC (Auto) 2 /hpf (0-3) 08/23/18 21:08 Ur Squamous Epith Cells 8 /hpf (0-5) H 08/23/18 21:08 Urine Bacteria Rare (<OCC) 08/23/18 21:08 Discharge Plan - Follow Up Plan Condition: GOOD Disposition: HOME/ ROUTINE Instructions: Preventing Falls in the Older Adult, Preventing Falls Additional Instructions: FOLLOW UP WITH DR GUNTER IN HIS OFFICE NEXT WEEK ----CALL FOR APPOINTMENT CONTINUE HOME MEDICATION ACTIVITY TOLERATED AND HOME PHYSICAL THERAPY TX AND EVAL CALL DR GUNTER OR GO THE EMERGENCY ROOM IF SYMPTOM RETURN OR WORSENING Referrals: Geovany Pyle [Staff Provider] - Seamus Gunter MD [Staff Provider] - Bello Raymundo MD [Staff Provider] -
--- NOTE | 2018-08-27 05:29 | DS ---
DISCHARGE DIAGNOSES: 1. Mechanical fall. 2. Hypertension. HOSPITAL COURSE: This is an 83-year-old white female with a history of cerebral atherosclerosis, prior CVA, hypertension, hyperlipemia who is compliant with diet, medications, and followup. She came in with mechanical fall. OH was ruled out by the patient's negative cardiac enzymes. The patient was also evaluated neuro check, fall and seizure precautions. She did well. She was also found to have mesenteric lymphadenitis which improved. The patient has CT of the abdomen which showed mesenteric lymphadenitis. CT head normal. PHYSICAL EXAMINATION: VITAL SIGNS: Blood pressure 152/60, pulse 61, respiratory rate 20, and temperature 98.1. LUNGS: Clear. ABDOMEN: Soft. CENTRAL NERVOUS SYSTEM: Awake, alert and oriented x3. DISCHARGE DIAGNOSES: Recurrent falls and hypertension. Seamus Gunter MD
== END 2018-08-25 18:30 | disposition home or self-care (01) | DRG 395 ==
LOC: C.ER 19:44 → C.6T 08-24 00:30 → OBSVTOIN 08-24 18:08 → C.6T 08-24 18:33
PROVIDERS: ADMIT Internal Medicine; ATTEND Internal Medicine
DX: I88.0 Nonspecific mesenteric lymphadenitis (principal); E78.5 Hyperlipidemia, unspecified; H40.9 Unspecified glaucoma; I10 Essential (primary) hypertension; I25.10 Atherosclerotic heart disease of native coronary artery without angina pectoris; R29.6 Repeated falls; R32 Unspecified urinary incontinence; Z86.73 Personal history of transient ischemic attack (TIA), and cerebral infarction without residual deficits; Z95.5 Presence of coronary angioplasty implant and graft

== ENCOUNTER 2018-10-30 19:51 | Inpatient (IN) | payer MEDICARE ==
[2018-10-30 19:52] VITALS: BMI 34.7
--- NOTE | 2018-10-30 22:55 | C.PDOC ---
History Of Present Illness 83 year old female with PMHx of CVA no resiudal defects, CAD s/p 3 stents, paroxysmal atrial fibrillation, vascular dementia is brought to the ED by her son for evaluation. As per patient's son, patient has been seeing things that ar e not there and more confused for the past year. As per Son the symptoms have been worsening over the last couple of days. Measure her blood pressure at home and noticed it was elevated. Patient had a brief episode of left sided chest pain that went away and never came back. Patient's son denies history of falls, syncope, injury, trauma, weakness, numbness, SOB, palpitations, weakness, numbness, no change in medications. Time Seen by Provider: 10/30/18 21:41 Chief Complaint (Nursing): High Blood Pressure History Per: Patient, Family History/Exam Limitations: language barrier Onset/Duration Of Symptoms: Days Current Symptoms Are (Timing): Still Present Associated Symptoms: Other Quality Of Symptoms: Asymptomatic Recent travel outside of the [place]: No Additional History Per: Family Past Medical History Reviewed: Historical Data, Nursing Documentation, Vital Signs Vital Signs: Last Vital Signs Temp 98.5 F 10/30/18 22:34 Pulse 67 10/30/18 22:34 Resp 18 10/30/18 22:34 BP 216/70 H 10/30/18 22:34 Pulse Ox 96 10/30/18 22:34 - Medical History PMH: CAD, Cardia Arrhythmia, CVA, HTN Denies: Chronic Kidney Disease Other PMH: paroxysmal atrial fibrillation, vascular dementia Surgical History: Cholecystectomy, Coronary Stent (2017, X3) - [facility] Procedures BILAT REDUCT MAMMOPLASTY (08/11/05) PACKED CELL TRANSFUSION (08/11/05) Family History: States: Unknown Family Hx - Social History Hx Alcohol Use: No Hx Substance Use: No - Immunization History Hx Tetanus Toxoid Vaccination: No Hx Influenza Vaccination: No Hx Pneumococcal Vaccination: No Review Of Systems Constitutional: Negative for: Fever, Chills Eyes: Negative for: Vision Change Cardiovascular: Negative for: Chest Pain, Palpitations Respiratory: Negative for: Shortness of Breath Gastrointestinal: Negative for: Nausea, Vomiting, Abdominal Pain Neurological: Positive for: Confusion. Negative for: Weakness, Numbness, Headache, Dizziness Physical Exam - Physical Exam Appears: Non-toxic, No Acute Distress Skin: Normal Color, Warm, Dry Head: Atraumatic, Normacephalic Eye(s): bilateral: Normal Inspection, PERRL, EOMI Oral Mucosa: Moist Neck: Normal ROM, Supple Chest: Symmetrical Cardiovascular: Rhythm Irregular (irregularly irregular) Respiratory: Normal Breath Sounds, No Rales, No Rhonchi, No Wheezing Gastrointestinal/Abdominal: Soft, No Tenderness, No Guarding, No Rebound Extremity: Normal ROM, No Tenderness, Pedal Edema (bilateral pitting), Capillary Refill (< 2 seconds) Pulses: Left Dorsalis Pedis: Normal, Right Dorsalis Pedis: Normal Neurological/Psych: Oriented x3, Normal Speech, Normal Cognition Gait: Steady ED Course And Treatment - Laboratory Results Result Diagrams: 11/05/18 07:07 11/05/18 07:07 ECG: Interpreted By Me, Viewed By Me ECG Rhythm: Sinus Rhythm Interpretation Of ECG: Sinus arrhythmia, normal intervals, LVH, no ST elevation or depressions Rate From EC (BPM) O2 Sat by Pulse Oximetry: 96 (ON RA) Pulse Ox Interpretation: Normal - CT Scan/US CT head Other Rad Studies (CT/US): Read By Radiologist, Radiology Report Reviewed CT/US Interpretation: Date of service: 10/30/2018. PROCEDURE: CT HEAD WITHOUT CONTRAST. HISTORY: AMS. COMPARISON: 08/23/2018. TECHNIQUE: Axial computed tomography images were obtained through the head/brain without intravenous contrast. Radiation dose: Total exam DLP = 1000.35 mGy-cm. This CT exam was performed using one or more of the following dose reduction techniques: Automated exposure control, adjustment of the mA and/or kV according to patient size, and/or use of iterative reconstruction technique. FINDINGS: HEMORRHAGE: No intracranial hemorrhage. BRAIN: There are severe chronic microangiopathic changes. There is no mass, mass effect or abnormal extra-axial fluid collection. There is no territorial infarction. The midline sagittal structures are normal. VENTRICLES: There is mild age-related global parenchymal volume loss and proportionate enlargement of the ventricles and cortical sulci. CALVARIUM: There is no calvarial fracture or extracranial soft tissue swelling. PARANASAL SINUSES: Predominantly clear. MASTOID AIR CELLS: Bilateral mastoid air cells are underdeveloped. OTHER FINDINGS: None. IMPRESSION: No acute intracranial abnormality. Moderate chronic microangiopathic changes and mild age-related global parenchymal volume loss. Medical Decision Making Medical Decision Making: Plan: * EKG * Labs * Urine culture * UA * CXR * CT head 00:43 - Called using his service for admission. Disposition - Disposition Disposition: HOSPITALIZED Disposition Time: 00:43 Condition: STABLE - Clinical Impression Clinical Impression: Hypertensive urgency, UTI (urinary tract infection) - Scribe Statement The provider has reviewed the documentation as recorded by the Scribe Shiv Bird All medical record entries made by the Scribe were at my direction and personally dictated by me. I have reviewed the chart and agree that the record accurately reflects my personal performance of the history, physical exam, medical decision making, and the department course for this patient. I have also personally directed, reviewed, and agree with the discharge instructions and disposition.
[2018-10-30 23:12] LABS: BASO # 0.1 K/uL (0.0-0.2); BASO % 0.8 % (0.0-2.0); EOS # 0.2 K/uL (0.0-0.7); EOS % 2.1 % (0.0-4.0); HEMOGLOBIN 12.4 g/dL (11.0-16.0); LYMPH # 1.5 K/uL (1.0-4.3); LYMPH % 20.6 % (20.0-40.0); MEAN CELL VOLUME 86.4 fL (81.0-99.0); MEAN CORPUSCULAR HEMOGLOBIN 28.8 pg (27.0-31.0); MEAN CORPUSCULAR HGB CONC 33.3 g/dL (33.0-37.0); MEAN PLATELET VOLUME 8.7 fL (7.2-11.7); MONO # 0.6 K/uL (0.0-0.8); MONO % 8.6 % (0.0-10.0); NEUT # 4.9 K/uL (1.8-7.0); NEUT % 67.9 % (50.0-75.0); NRBC % 0.1 % (0.0-2.0); RBC 4.31 Mil/uL (3.80-5.20); RED CELL DISTRIBUTION WIDTH 14.6 % (11.5-14.5); WHITE BLOOD COUNT 7.3 K/uL (4.8-10.8)
[2018-10-30 23:25] LABS: ALB/GLOB RATIO 1.8 (1.0-2.1); ALBUMIN 4.6 g/dL (3.5-5.0); ALT/SGPT 31 U/L (9-52); AST/SGOT 34 U/L (14-36); BLOOD UREA NITROGEN 21 mg/dL (7-17); CALCIUM 9.5 mg/dl (8.6-10.4); GFR NON-AFRICAN AMERICAN 60
[2018-10-30 23:49] LABS: SQUAMOUS EPITHIAL < 1 /hpf (0-5); URINE BACTERIA FEW (<OCC); URINE BILIRUBIN NEGATIVE (NEGATIVE); URINE BLOOD NEGATIVE (NEGATIVE); URINE CLARITY Clear (Clear); URINE COLOR Yellow (YELLOW); URINE GLUCOSE (UA) NORMAL (Normal); URINE LEUKOCYTE ESTERASE 1+ Leu/uL (Negative); URINE PROTEIN 2+ mg/dL (NEGATIVE); URINE UROBILINOGEN NORMAL mg/dL (0.2-1.0)
--- NOTE | 2018-10-31 00:33 | CT ---
Date of service: 10/30/2018 PROCEDURE: CT HEAD WITHOUT CONTRAST. HISTORY: AMS COMPARISON: 08/23/2018 TECHNIQUE: Axial computed tomography images were obtained through the head/brain without intravenous contrast. Radiation dose: Total exam DLP = 1000.35 mGy-cm. This CT exam was performed using one or more of the following dose reduction techniques: Automated exposure control, adjustment of the mA and/or kV according to patient size, and/or use of iterative reconstruction technique. FINDINGS: HEMORRHAGE: No intracranial hemorrhage. BRAIN: There are severe chronic microangiopathic changes. There is no mass, mass effect or abnormal extra-axial fluid collection. There is no territorial infarction. The midline sagittal structures are normal. VENTRICLES: There is mild age-related global parenchymal volume loss and proportionate enlargement of the ventricles and cortical sulci. CALVARIUM: There is no calvarial fracture or extracranial soft tissue swelling. PARANASAL SINUSES: Predominantly clear. MASTOID AIR CELLS: Bilateral mastoid air cells are underdeveloped. OTHER FINDINGS: None. IMPRESSION: No acute intracranial abnormality. Moderate chronic microangiopathic changes and mild age-related global parenchymal volume loss.
--- NOTE | 2018-10-31 07:23 | CP.PCM.PN ---
Subjective - Date & Time of Evaluation Date of Evaluation: 10/31/18 Time of Evaluation: 09:00 - Subjective Subjective: Ms. Torres is an 83 year old female with a PMHx of HTN, CVA (no resiudal defects), CAD s/p 3 stents, paroxysmal atrial fibrillation, vascular dementia who presented to the ED with her son for evaluation of confusion and visual hallucinations. ROS unreliable due to patient's altered mental status. She does deny any headache, blurry vision, fever, dizziness, chest pain, SOB, abdominal pain, nausea, vomiting, diarrhea, constipation, urinary frequency, or dysuria. Patient is AAOx1. ROS: As stated above PMHx: As stated above PSHx: Stentx3, Chelecystectomy Allergies: NKDA Meds: Per DEC. Objective - Vital Signs/Intake and Output Vital Signs (last 24 hours): Temp Pulse Resp BP Pulse Ox 98.2 F 62 14 208/71 H 96 10/31/18 06:42 10/31/18 06:42 10/31/18 06:42 10/31/18 06:42 10/31/18 06:42 - Medications Medications: Current Medications Losartan Potassium (Cozaar) 100 mg PO DAILY [facility] Last Admin: 10/31/18 07:17 Dose: 100 mg - Labs Labs: 10/30/18 23:10 10/30/18 23:10 - Constitutional Appears: Well, Non-toxic - Head Exam Head Exam: ATRAUMATIC, NORMAL INSPECTION, NORMOCEPHALIC - Eye Exam Eye Exam: Normal appearance - ENT Exam ENT Exam: Mucous Membranes Dry - Neck Exam Neck Exam: Normal Inspection - Respiratory Exam Respiratory Exam: Clear to Ausculation Bilateral. absent: Accessory Muscle Use - Cardiovascular Exam Cardiovascular Exam: RRR, +S1, +S2 - GI/Abdominal Exam GI & Abdominal Exam: Soft, Normal Bowel Sounds. absent: Tenderness - Extremities Exam Extremities Exam: Normal Capillary Refill, Pedal Edema - Neurological Exam Neurological Exam: Alert, Awake. absent: Oriented x3 - Psychiatric Exam Psychiatric exam: Normal Affect, Normal Mood - Skin Skin Exam: Dry, Intact, Normal Color, Warm Assessment and Plan - Assessment and Plan (Free Text) Assessment: 83 year old female with a PMHx of HTN, CVA (no resiudal defects), CAD s/p 3 stents, paroxysmal atrial fibrillation, vascular dementia who presented to the ED with her son for evaluation of confusion and visual hallucinations. Patient admitted for evaluation and treatment of altered mental status 2/2 to UTI. Plan: Acute Encephalopathy, (Ddx: UTI (Likely), Worsening Dementia, Hypertensive Encephalopathy) CT Head w/o Contrast (Admission): Shows no acute intracranial abnormalities. CXR (Admission): Cardiomegaly UA (Admission) +Leuk Es and Nitrates. EKG (Admission): Sinus arrhythmia, normal intervals, LVH, no ST elevation or depressions Troponin/BNP - NEGATIVE Urine Culture - PENDING | Blood Cultures - PENDING Mgmt: Rocephin 1gram Daily NS @ 75 mls/hr UTI UA (Admission) +Leuk Es and Nitrates. Urine Culture - PENDING | Blood Cultures - PENDING Mgmt: Rocephin 1gram Daily NS @ 75 mls/hr HTN/Hytertensive Urgency Mgmt: ED: Catapress 0.1mg once, Hydralazine 10mg IVP Once Home Losartan 100 PO Daily Hydralazine 25mg QID PRN for SBP > 200 & DBP > 120 Consider starting Koby I or Thiazide Diuretic Hx of CAD w/ 3 stents Mgmt: ASA 81mg PO Daily Plavix 75mg PO Daily Rosuvastain 20mg PO HS Proph Lovenox Dispo: Discussed patient with Son "Cleve" over the phone. He states that she is far from baseline. She is normally AAOx3. Patient seen and examined w/ Attending (Dr. Taylor) Laila Arriola, PGY-2
[2018-10-31] MEDS ORDERED: Sodium Chloride 0.9% 1,000 ML ONE (09:21)
[2018-10-31] MEDS: Sodium Chloride 0.9% 1,000 ML IV SCH ×2 (09:21→23:26)
--- NOTE | 2018-10-31 11:18 | RAD ---
HISTORY: AMS COMPARISON: None available TECHNIQUE: Chest PA and lateral FINDINGS: Examination limited by habitus. LUNGS: No focal consolidation.Biapical pleural thickening. Please note that chest x-ray has limited sensitivity for the detection of pulmonary masses. PLEURA: No significant pleural effusion identified. No definite pneumothorax . CARDIOVASCULAR: Cardiomegaly. Ectatic aorta. Atherosclerotic calcifications. Interloop recording device projects over the left heart border. OSSEOUS STRUCTURES: Degenerative changes. Osseous demineralization. Kyphosis. VISUALIZED UPPER ABDOMEN: Unremarkable. OTHER FINDINGS: None. IMPRESSION: Cardiomegaly.
--- NOTE | 2018-11-01 07:04 | HP ---
HISTORY OF PRESENT ILLNESS: Patient is a 83 year-old female chief complaint altered mental status. The patient came to ER, advised admission. PHYSICAL EXAMINATION: GENERAL: The patient is awake, alert, and oriented. VITAL SIGNS: Temperature 98, pulse 90. HEENT: Within normal limits. NECK: Supple. CHEST: Symmetrical. HEART: Regular. ABDOMEN: Soft. EXTREMITIES: No edema. ASSESSMENT AND PLAN: The patient suffers from UTI, altered mental status. The patient is placed on IV antibiotics, supportive care. Raghu Taylor MD
--- NOTE | 2018-11-01 07:44 | CP.PCM.PN ---
Subjective - Date & Time of Evaluation Date of Evaluation: 11/01/18 Time of Evaluation: 07:44 - Subjective Subjective: Progress note for Dr. Taylor Patient was seen and examined at bedside in no acute distress. Patient is alert, oriented to person and place, but not time. She has no complaints today and says shes feeling better. Objective - Vital Signs/Intake and Output Vital Signs (last 24 hours): Temp Pulse Resp BP Pulse Ox 97.9 F 64 20 165/68 H 97 10/31/18 23:15 11/01/18 00:44 10/31/18 23:15 10/31/18 23:15 10/31/18 18:55 Intake and Output: 11/01/18 11/01/18 06:59 18:59 Intake Total 500 Balance 500 - Medications Medications: Current Medications Aspirin (Ecotrin) 81 mg PO DAILY [facility] Last Admin: 10/31/18 10:38 Dose: 81 mg Clopidogrel Bisulfate (Plavix) 75 mg PO DAILY [facility] Last Admin: 10/31/18 10:38 Dose: Not Given Enoxaparin Sodium (Lovenox) 40 mg SC DAILY [facility] Escitalopram Oxalate (Lexapro) 20 mg PO DAILY [facility] Last Admin: 10/31/18 10:38 Dose: 20 mg Ceftriaxone Sodium 1 gm/ (Sodium Chloride) 100 mls @ 100 mls/hr IVPB Q24H [facility]; Protocol Last Admin: 10/31/18 13:49 Dose: 100 mls/hr Sodium Chloride (Sodium Chloride 0.9%) 1,000 mls @ 75 mls/hr IV .[id number] [facility] Last Admin: 10/31/18 23:26 Dose: 75 mls/hr Losartan Potassium (Cozaar) 100 mg PO DAILY [facility] Last Admin: 10/31/18 10:39 Dose: Not Given Rosuvastatin Calcium (Crestor) 20 mg PO HS [facility] Last Admin: 10/31/18 21:13 Dose: 20 mg - Labs Labs: 10/30/18 23:10 10/30/18 23:10 - Constitutional Appears: No Acute Distress - Head Exam Head Exam: ATRAUMATIC, NORMAL INSPECTION - Eye Exam Eye Exam: EOMI, Normal appearance - ENT Exam ENT Exam: Mucous Membranes Moist - Respiratory Exam Respiratory Exam: NORMAL BREATHING PATTERN. absent: Rales, Rhonchi, Wheezes, Respiratory Distress - Cardiovascular Exam Cardiovascular Exam: +S1, +S2, Murmur - GI/Abdominal Exam GI & Abdominal Exam: Soft, Normal Bowel Sounds. absent: Distended, Firm, Tenderness - Extremities Exam Extremities Exam: Normal Inspection. absent: Pedal Edema, Tenderness - Neurological Exam Neurological Exam: Alert, Awake. absent: Oriented x3 - Psychiatric Exam Psychiatric exam: Normal Affect, Normal Mood - Skin Skin Exam: Dry, Normal Color, Warm Assessment and Plan - Assessment and Plan (Free Text) Plan: 83 year old female with a PMHx of HTN, CVA (no resiudal defects), CAD s/p 3 stents, paroxysmal atrial fibrillation, vascular dementia who presented to the ED with her son for evaluation of confusion and visual hallucinations. Patient admitted for evaluation and treatment of altered mental status 2/2 to UTI. Acute Encephalopathy Ddx: UTI (Likely), Worsening Dementia, Hypertensive Encephalopathy CT Head w/o Contrast (Admission): Shows no acute intracranial abnormalities. CXR (Admission): Cardiomegaly UA (Admission) +Leuk Es and Nitrates. EKG (Admission): Sinus arrhythmia, normal intervals, LVH, no ST elevation or depressions Troponin/BNP - NEGATIVE Urine Culture: +gram neg rods Blood Cultures: negative to date Management: * Rocephin 1gram Daily * NS @ 75 mls/hr UTI UA (Admission) +Leuk Es and Nitrates. Urine Culture: +gram neg rods Blood Cultures: negative to date Management: * Rocephin 1gram Daily * NS @ 75 mls/hr HTN/Hytertensive Urgency Management: * ED: Catapress 0.1mg once, Hydralazine 10mg IVP Once * Home Losartan 100 PO Daily * Hydralazine 25mg QID PRN for SBP > 200 & DBP > 120 * Consider starting Koby I or Thiazide Diuretic Hx of CAD w/ 3 stents Management: * ASA 81mg PO Daily * Plavix 75mg PO Daily * Rosuvastain 20mg PO HS Prophylaxis Lovenox 40mg SC daily Case discussed and patient seen with Dr. Claudia Youssef, PGY2
[2018-11-01] MEDS: Enoxaparin 40 mg Syringe SC SCH (09:19)
[2018-11-01] MEDS ORDERED: Enalaprilat 2.5 MG/2 ML IV ONE (09:28)
[2018-11-01 14:02] LABS: BASO % 0.5 % (0.0-2.0); EOS # 0.2 K/uL (0.0-0.7); EOS % 2.1 % (0.0-4.0); HEMOGLOBIN 11.5 g/dL (11.0-16.0); LYMPH # 0.8 K/uL (1.0-4.3); LYMPH % 9.6 % (20.0-40.0); MEAN CELL VOLUME 86.2 fL (81.0-99.0); MEAN CORPUSCULAR HEMOGLOBIN 28.8 pg (27.0-31.0); MEAN CORPUSCULAR HGB CONC 33.5 g/dL (33.0-37.0); MEAN PLATELET VOLUME 9.1 fL (7.2-11.7); MONO # 0.6 K/uL (0.0-0.8); MONO % 7.8 % (0.0-10.0); NEUT # 6.4 K/uL (1.8-7.0); PLATELET COUNT 189 K/uL (130-400); RBC 3.98 Mil/uL (3.80-5.20); RED CELL DISTRIBUTION WIDTH 14.6 % (11.5-14.5); WHITE BLOOD COUNT 7.9 K/uL (4.8-10.8)
[2018-11-01 14:26] LABS: BANDS 3 % (0-2); EOSINOPHIL 2 % (0-4); LYMPHOCYTE 11 % (20-40); MONOCYTE 7 % (0-10); NEUTROPHIL 75 % (50-75); OVALOCYTES SLIGHT; PLATELET ESTIMATE NORMAL (NORMAL); REACTIVE LYMPHOCYTES 2 % (0-0); TOTAL CELLS COUNTED 100
[2018-11-01 15:22] LABS: ALB/GLOB RATIO 1.7 (1.0-2.1); ALBUMIN 3.8 g/dL (3.5-5.0); ALT/SGPT 30 U/L (9-52); AST/SGOT 27 U/L (14-36); BLOOD UREA NITROGEN 22 mg/dL (7-17); CALCIUM 8.9 mg/dl (8.6-10.4); GFR NON-AFRICAN AMERICAN > 60
--- NOTE | 2018-11-02 07:29 | CP.PCM.PN ---
"Subjective - Date & Time of Evaluation Date of Evaluation: 11/02/18 Time of Evaluation: 07:30 - Subjective Subjective: Patient seen and examined at bedside. No overnight events reported. She denies any fever, chills, headache, chest pain, SOB, abdominal pain, n/v, changes in bowel habits or urinary symptoms. She is AAOx2. She does not remember the brody e. She does complain of b/l eye pain and pruritis. She also states her vision is more blurry than normal. She states she has glaucoma and usually takes eye drops. Upon speaking to her son (Cleve), he informed me that the patient has chronic eye issues. She has a PSHx of glaucomo surgery. Her eyes normally tear up and she has to clean them often. Per Son, patient usually has trouble rememb ering the date. On repeat examination with Attending, the patient was having visual hallucinat ions. Objective - Vital Signs/Intake and Output Vital Signs (last 24 hours): Temp Pulse Resp BP Pulse Ox 98.2 F 81 20 174/69 H 96 11/02/18 00:44 11/02/18 02:04 11/02/18 00:44 11/02/18 02:04 11/02/18 00:44 Intake and Output: 11/02/18 11/02/18 06:59 18:59 Intake Total 400 Balance 400 - Medications Medications: Current Medications Amlodipine Besylate (Norvasc) 5 mg PO DAILY [facility] Aspirin (Ecotrin) 81 mg PO DAILY [facility] Last Admin: 11/01/18 09:19 Dose: 81 mg Clopidogrel Bisulfate (Plavix) 75 mg PO DAILY [facility] Last Admin: 11/01/18 09:19 Dose: 75 mg Enoxaparin Sodium (Lovenox) 40 mg SC DAILY [facility] Last Admin: 11/01/18 09:19 Dose: 40 mg Escitalopram Oxalate (Lexapro) 20 mg PO DAILY [facility] Last Admin: 11/01/18 09:19 Dose: 20 mg Hydralazine HCl (Apresoline) 25 mg PO QID PRN PRN Reason: SBP>200 or DBP >100 Last Admin: 11/02/18 01:15 Dose: 25 mg Ceftriaxone Sodium 1 gm/ (Sodium Chloride) 100 mls @ 100 mls/hr IVPB Q24H [facility]; Protocol Last Admin: 11/01/18 12:44 Dose: 100 mls/hr Sodium Chloride (Sodium Chloride 0.9%) 1,000 mls @ 75 mls/hr IV .[id number] [facility] Last Admin: 10/31/18 23:26 Dose: 75 mls/hr Losartan Potassium (Cozaar) 100 mg PO DAILY [facility] Last Admin: 11/01/18 09:19 Dose: 100 mg Rosuvastatin Calcium (Crestor) 20 mg PO HS [facility] Last Admin: 11/01/18 21:49 Dose: 20 mg - Labs Labs: 11/01/18 13:56 11/01/18 13:56 - Neck Exam Additional comments: - Constitutional Appears: No Acute Distress - Head Exam Head Exam: ATRAUMATIC, NORMAL INSPECTION - Eye Exam Eye Exam: EOMI, Normal appearance - ENT Exam ENT Exam: Mucous Membranes Moist - Respiratory Exam Respiratory Exam: NORMAL BREATHING PATTERN. absent: Rales, Rhonchi, Wheezes, Respiratory Distress - Cardiovascular Exam Cardiovascular Exam: +S1, +S2, Murmur. Irregular Irregular Rhythm - GI/Abdominal Exam GI & Abdominal Exam: Soft, Normal Bowel Sounds. absent: Distended, Firm, Tenderness - Extremities Exam Extremities Exam: Normal Capillary Refill, Pedal Edema - Neurological Exam Neurological Exam: Alert, Awake. absent: Oriented x3 (Oriented x 2) - Psychiatric Exam Psychiatric exam: Normal Affect, Normal Mood - Skin Skin Exam: Dry, Normal Color, Warm Assessment and Plan - Assessment and Plan (Free Text) Assessment: 83 year old female with a PMHx of HTN, CVA (no resiudal defects), CAD s/p 3 stents, paroxysmal atrial fibrillation, vascular dementia who presented to the ED with her son for evaluation of confusion and visual hallucinations. Patient admitted for evaluation and treatment of altered mental status 2/2 to UTI. Plan: Acute Encephalopathy, (Ddx: UTI (Likely), Worsening Dementia, Hypertensive Encephalopathy) CT Head w/o Contrast (Admission): Shows no acute intracranial abnormalities. CXR (Admission): Cardiomegaly UA (Admission) +Leuk Es and Nitrates. EKG (Admission): Sinus arrhythmia, normal intervals, LVH, no ST elevation or depressions Troponin/BNP - NEGATIVE Urine Culture -Enterobacter Aerogenes | Blood Cultures - NEGATIVE (24hrs) Mgmt: Rocephin 1gram Daily NS @ 75 mls/hr UTI UA (Admission) +Leuk Es and Nitrates. Urine Culture -Enterobacter Aerogenes | Blood Cultures - NEGATIVE (24hrs) Mgmt: Rocephin 1gram Daily NS @ 75 mls/hr (Held) HTN/Hytertensive Urgency Mgmt: ED: Catapress 0.1mg once, Hydralazine 10mg IVP Once Home Losartan 100 PO Daily Hydralazine 25mg QID PRN for SBP > 200 & DBP > 120 Start Amlodipine 5mg PO Daily today. Hx of CAD w/ 3 stents Mgmt: ASA 81mg PO Daily Plavix 75mg PO Daily Rosuvastain 20mg PO HS Proph Lovenox Patient seen and examined w/ Attending (Dr. Taylor) Laila Arriola, PGY-2"
[2018-11-02 11:15] LABS: BASO # 0.1 K/uL (0.0-0.2); BASO % 0.8 % (0.0-2.0); EOS # 0.2 K/uL (0.0-0.7); EOS % 3.1 % (0.0-4.0); HEMOGLOBIN 11.4 g/dL (11.0-16.0); LYMPH # 0.9 K/uL (1.0-4.3); LYMPH % 11.7 % (20.0-40.0); MEAN CELL VOLUME 86.4 fL (81.0-99.0); MEAN CORPUSCULAR HEMOGLOBIN 29.1 pg (27.0-31.0); MEAN CORPUSCULAR HGB CONC 33.7 g/dL (33.0-37.0); MEAN PLATELET VOLUME 9.2 fL (7.2-11.7); MONO # 0.6 K/uL (0.0-0.8); MONO % 8.3 % (0.0-10.0); NEUT # 5.6 K/uL (1.8-7.0); NEUT % 76.1 % (50.0-75.0); NRBC % 0.1 % (0.0-2.0); RBC 3.9 Mil/uL (3.80-5.20); RED CELL DISTRIBUTION WIDTH 14.5 % (11.5-14.5); WHITE BLOOD COUNT 7.3 K/uL (4.8-10.8)
[2018-11-02] MEDS: Enoxaparin 40 mg Syringe SC SCH (11:18)
[2018-11-02 11:38] LABS: ALB/GLOB RATIO 1.6 (1.0-2.1); ALBUMIN 3.8 g/dL (3.5-5.0); ALT/SGPT 25 U/L (9-52); AST/SGOT 25 U/L (14-36); BLOOD UREA NITROGEN 22 mg/dL (7-17); CALCIUM 8.7 mg/dl (8.6-10.4); GFR NON-AFRICAN AMERICAN > 60
[2018-11-02] MEDS ORDERED: Potassium Chloride 20 mEq ER Tab PO ONE (13:15)
[2018-11-03 07:41] LABS: BASO % 0.7 % (0.0-2.0); EOS # 0.2 K/uL (0.0-0.7); EOS % 2.8 % (0.0-4.0); HEMOGLOBIN 10.6 g/dL (11.0-16.0); LYMPH % 14.5 % (20.0-40.0); MEAN CELL VOLUME 86.2 fL (81.0-99.0); MEAN CORPUSCULAR HEMOGLOBIN 28.9 pg (27.0-31.0); MEAN CORPUSCULAR HGB CONC 33.5 g/dL (33.0-37.0); MEAN PLATELET VOLUME 9.1 fL (7.2-11.7); MONO # 0.6 K/uL (0.0-0.8); MONO % 9.2 % (0.0-10.0); NEUT # 4.9 K/uL (1.8-7.0); NEUT % 72.8 % (50.0-75.0); RBC 3.68 Mil/uL (3.80-5.20); WHITE BLOOD COUNT 6.7 K/uL (4.8-10.8)
[2018-11-03 07:56] LABS: ALB/GLOB RATIO 1.5 (1.0-2.1); ALBUMIN 3.6 g/dL (3.5-5.0); ALT/SGPT 35 U/L (9-52); AST/SGOT 31 U/L (14-36); BLOOD UREA NITROGEN 22 mg/dL (7-17); CALCIUM 8.9 mg/dl (8.6-10.4); GFR NON-AFRICAN AMERICAN > 60
[2018-11-03] MEDS: Enoxaparin 40 mg Syringe SC SCH (09:58)
--- NOTE | 2018-11-03 10:23 | CARD ---
APPROVED REPORT Date of service: 10/30/2018 EKG Measurement Heart [id number] <Conclusion> Sinus rhythm with marked sinus arrhythmia Voltage criteria for left ventricular hypertrophy Abnormal ECG
[2018-11-04 08:36] LABS: BASO # 0.1 K/uL (0.0-0.2); BASO % 1.2 % (0.0-2.0); EOS # 0.3 K/uL (0.0-0.7); EOS % 4.6 % (0.0-4.0); HEMOGLOBIN 11.2 g/dL (11.0-16.0); LYMPH # 1.1 K/uL (1.0-4.3); LYMPH % 17.7 % (20.0-40.0); MEAN CELL VOLUME 86.3 fL (81.0-99.0); MEAN CORPUSCULAR HEMOGLOBIN 28.9 pg (27.0-31.0); MEAN CORPUSCULAR HGB CONC 33.4 g/dL (33.0-37.0); MEAN PLATELET VOLUME 8.8 fL (7.2-11.7); MONO # 0.5 K/uL (0.0-0.8); MONO % 8.1 % (0.0-10.0); NEUT # 4.2 K/uL (1.8-7.0); NEUT % 68.4 % (50.0-75.0); NRBC % 0.1 % (0.0-2.0); RBC 3.87 Mil/uL (3.80-5.20); RED CELL DISTRIBUTION WIDTH 14.7 % (11.5-14.5); WHITE BLOOD COUNT 6.1 K/uL (4.8-10.8)
[2018-11-04 08:48] LABS: ALB/GLOB RATIO 1.4 (1.0-2.1); ALBUMIN 3.5 g/dL (3.5-5.0); ALT/SGPT 39 U/L (9-52); AST/SGOT 26 U/L (14-36); BLOOD UREA NITROGEN 24 mg/dL (7-17); CALCIUM 8.8 mg/dl (8.6-10.4); GFR NON-AFRICAN AMERICAN > 60
[2018-11-04] MEDS: Enoxaparin 40 mg Syringe SC SCH (10:26)
[2018-11-04 18:26] VITALS: RESP 20
[2018-11-05 07:34] LABS: ALB/GLOB RATIO 1.4 (1.0-2.1); ALBUMIN 3.4 g/dL (3.5-5.0); ALT/SGPT 36 U/L (9-52); AST/SGOT 27 U/L (14-36); BASO # 0.1 K/uL (0.0-0.2); BLOOD UREA NITROGEN 26 mg/dL (7-17); CALCIUM 8.7 mg/dl (8.6-10.4); EOS # 0.3 K/uL (0.0-0.7); EOS % 5.5 % (0.0-4.0); GFR NON-AFRICAN AMERICAN 60; HEMOGLOBIN 11.1 g/dL (11.0-16.0); LYMPH # 1.2 K/uL (1.0-4.3); LYMPH % 21.4 % (20.0-40.0); MEAN CELL VOLUME 85.3 fL (81.0-99.0); MEAN CORPUSCULAR HEMOGLOBIN 28.6 pg (27.0-31.0); MEAN CORPUSCULAR HGB CONC 33.6 g/dL (33.0-37.0); MEAN PLATELET VOLUME 9.2 fL (7.2-11.7); MONO # 0.5 K/uL (0.0-0.8); NEUT # 3.6 K/uL (1.8-7.0); NEUT % 63.1 % (50.0-75.0); NRBC % 0.2 % (0.0-2.0); RBC 3.87 Mil/uL (3.80-5.20); RED CELL DISTRIBUTION WIDTH 14.8 % (11.5-14.5); WHITE BLOOD COUNT 5.7 K/uL (4.8-10.8)
[2018-11-05] MEDS ORDERED: Potassium Chloride 20 mEq ER Tab PO ONE (08:39)
--- NOTE | 2018-11-05 08:48 | CP.PCM.PN ---
"Subjective - Date & Time of Evaluation Date of Evaluation: 11/05/18 Time of Evaluation: 07:55 - Subjective Subjective: Medicine Progress Note for Dr. Taylor Patient seen and examined at bedside. Patient had elevated blood pressure overnight, but she denies having dizziness, headache, shortness of breath, chest pain, nausea, or vomiting. Patient's alert, awake, orientated to person and place. She further denies having any urinary symptoms. Otherwise patient is eating breakfast comfortably. Objective - Vital Signs/Intake and Output Vital Signs (last 24 hours): Temp Pulse Resp BP Pulse Ox 97.9 F 63 20 184/63 H 94 L 11/05/18 07:20 11/05/18 07:20 11/05/18 07:20 11/05/18 07:20 11/05/18 07:20 - Medications Medications: Current Medications Amlodipine Besylate (Norvasc) 5 mg PO DAILY [facility] Last Admin: 11/04/18 10:26 Dose: 5 mg Aspirin (Ecotrin) 81 mg PO DAILY [facility] Last Admin: 11/04/18 10:26 Dose: 81 mg Clopidogrel Bisulfate (Plavix) 75 mg PO DAILY [facility] Last Admin: 11/04/18 10:26 Dose: 75 mg Enoxaparin Sodium (Lovenox) 40 mg SC DAILY [facility] Last Admin: 11/04/18 10:26 Dose: 40 mg Escitalopram Oxalate (Lexapro) 20 mg PO DAILY [facility] Last Admin: 11/04/18 10:27 Dose: 20 mg Hydralazine HCl (Apresoline) 25 mg PO QID PRN PRN Reason: SBP>200 or DBP >100 Last Admin: 11/04/18 10:26 Dose: 25 mg Ceftriaxone Sodium 1 gm/ (Sodium Chloride) 100 mls @ 100 mls/hr IVPB Q24H [facility]; Protocol Last Admin: 11/04/18 12:30 Dose: 100 mls/hr Sodium Chloride (Sodium Chloride 0.9%) 1,000 mls @ 75 mls/hr IV .[id number] [facility] Last Admin: 10/31/18 23:26 Dose: 75 mls/hr Losartan Potassium (Cozaar) 100 mg PO DAILY [facility] Last Admin: 11/04/18 10:26 Dose: 100 mg Potassium Chloride (K-Dur 20 Meq Er Tab) 20 meq PO ONCE ONE Stop: 11/05/18 08:40 Rosuvastatin Calcium (Crestor) 20 mg PO HS [facility] Last Admin: 11/04/18 23:27 Dose: Not Given - Labs Labs: 11/05/18 07:07 11/05/18 07:07 - Additional Findings Additional findings: - Neck Exam Additional comments: - Constitutional Appears: No Acute Distress - Head Exam Head Exam: ATRAUMATIC, NORMAL INSPECTION - Eye Exam Eye Exam: EOMI, Normal appearance - ENT Exam ENT Exam: Mucous Membranes Moist - Respiratory Exam Respiratory Exam: NORMAL BREATHING PATTERN. absent: Rales, Rhonchi, Wheezes, Respiratory Distress - Cardiovascular Exam Cardiovascular Exam: +S1, +S2, Murmur. Irregular Irregular Rhythm - GI/Abdominal Exam GI & Abdominal Exam: Soft, Normal Bowel Sounds. absent: Distended, Firm, Tenderness - Extremities Exam Extremities Exam: Normal Capillary Refill, Pedal Edema - Neurological Exam Neurological Exam: Alert, Awake. absent: Oriented x3 (Oriented x 2) - Psychiatric Exam Psychiatric exam: Normal Affect, Normal Mood - Skin Skin Exam: Dry, Normal Color, Warm Assessment and Plan - Assessment and Plan (Free Text) Assessment: Acute Encephalopathy, Likely secondary to UTI, Worsening Dementia, Hypertensive Encephalopathy) Afebrile, no leukocytosis CT Head w/o Contrast (Admission): Shows no acute intracranial abnormalities. CXR (Admission): Cardiomegaly UA (Admission) +Leuk Es and Nitrates. EKG (Admission): Sinus arrhythmia, normal intervals, LVH, no ST elevation or depressions Troponin/BNP - NEGATIVE Urine Culture -Enterobacter Aerogenes | Blood Cultures - NEGATIVE (24hrs) UTI Urinary symptoms resolved UA (Admission) +Leuk Es and Nitrates. Urine Culture -Enterobacter Aerogenes | Blood Cultures - NEGATIVE (24hrs) Mgmt: Rocephin 1gram Daily NS @ 75 mls/hr (Held) HTN/Hytertensive Urgency Mgmt: ED: Catapress 0.1mg once, Hydralazine 10mg IVP Once Home Losartan 100 PO Daily Hydralazine 25mg QID PRN for SBP > 200 & DBP > 120 Start Amlodipine 5mg PO Daily today. Hx of CAD w/ 3 stents Mgmt: ASA 81mg PO Daily Plavix 75mg PO Daily Rosuvastain 20mg PO HS Hypokalemia K 3.4 today Replenish as needed Proph Lovenox Dispo: Patient is medically stable to be discharge home. Patient will follow up with Dr. Taylor as outpatient for HTN management and urine culture. Case discussed with attending physician Dr. Taylor"
[2018-11-05] MEDS: Enoxaparin 40 mg Syringe SC SCH (09:11)
[2018-11-05 16:54] VITALS: BP 158/67; PULSE 67; TEMP 98.1
[2018-11-06 07:50] VITALS: O2SAT 96
== END 2018-11-05 18:31 | disposition home or self-care (01) | DRG 690 ==
LOC: C.ER 19:51 → C.9E 10-31 01:19 → C.6T 10-31 16:38 → C.9E 10-31 16:45 → C.6T 10-31 17:38
PROVIDERS: ADMIT Internal Medicine Pulmonary Disease; ATTEND Internal Medicine Pulmonary Disease
DX: N39.0 Urinary tract infection, site not specified (principal); I67.4 Hypertensive encephalopathy; R41.82 Altered mental status, unspecified; I16.0 Hypertensive urgency; F01.50 Vascular dementia, unspecified severity, without behavioral disturbance, psychotic disturbance, mood disturbance, and anxiety; I10 Essential (primary) hypertension; I25.10 Atherosclerotic heart disease of native coronary artery without angina pectoris; I48.0 Paroxysmal atrial fibrillation; R44.1 Visual hallucinations; E87.6 Hypokalemia; I11.9 Hypertensive heart disease without heart failure; I51.7 Cardiomegaly; H40.9 Unspecified glaucoma; L29.9 Pruritus, unspecified; H57.13 Ocular pain, bilateral; Z86.73 Personal history of transient ischemic attack (TIA), and cerebral infarction without residual deficits; Z95.5 Presence of coronary angioplasty implant and graft

== ENCOUNTER 2019-01-25 19:04 | Inpatient (IN) | payer MEDICARE ==
[2019-01-25 19:05] VITALS: BMI 34.7
--- NOTE | 2019-01-25 20:08 | C.PDOC ---
History Of Present Illness 83 year old female is brought to the ED by family for evaluation of recurrent confusion, elevated blood pressure. Patient's history limited due to clinical condition, history provided by patient's family at bedside. As per family pat ient has recurrent confusion and hallucinations that have been worsening since yesterday. family reports this usually happens when patient's blood pressure is high, however they states is has been controlled. Patient's blood pressure is baseline at 150/70, family measured it yesterday at it was 200/100. Patient also c/o forehead contusion that occurred last night, family reports light was turned off and patient accidentally walked into a wall. Patient c/o recurrent dizziness as well. Patient's family denies fever, chills, visual changes, CP, SOB, palpitations. PMHx of CVA no resiudal defects, CAD s/p 3 stents, paroxysmal atrial fibrillation, vascular dementia Time Seen by Provider: 01/25/19 19:48 Chief Complaint (Nursing): Dizziness/Lightheaded History Per: Family History/Exam Limitations: Clinical Condition Onset/Duration Of Symptoms: Days (1) Onset Of Symptoms: Other Current Symptoms Are (Timing): Still Present Exacerbating Factor(s): Other (Blood pressure) Recent travel outside of the [place]: No Additional History Per: Family Associated Symptoms: Confused Past Medical History Reviewed: Historical Data, Nursing Documentation, Vital Signs Vital Signs: Last Vital Signs Temp 97.9 F 01/25/19 19:12 Pulse 65 01/25/19 19:12 Resp 20 01/25/19 19:12 BP 201/69 H 01/25/19 19:12 Pulse Ox 96 01/25/19 19:12 - Medical History PMH: CAD, Cardia Arrhythmia, CVA, HTN Denies: Chronic Kidney Disease Surgical History: Cholecystectomy, Coronary Stent (2017, X3) - [facility] Procedures BILAT REDUCT MAMMOPLASTY (08/11/05) PACKED CELL TRANSFUSION (08/11/05) Family History: States: Unknown Family Hx - Social History Hx Alcohol Use: No Hx Substance Use: No - Immunization History Hx Tetanus Toxoid Vaccination: No Hx Influenza Vaccination: No Hx Pneumococcal Vaccination: No Review Of Systems Review Of Systems: ROS cannot be obtained secondary to pt's inabilty to answer questions. (due to clinical condition) Physical Exam - Physical Exam Appears: Non-toxic, Confused Skin: Normal Color, Warm, Dry Head: Normacephalic, Other (midline forehead bruise) Eye(s): bilateral: Normal Inspection, PERRL, EOMI Oral Mucosa: Moist Neck: Normal ROM, No Midline Cervical Tenderness, Supple Chest: Symmetrical Cardiovascular: Rhythm Regular Respiratory: Normal Breath Sounds, No Rales, No Rhonchi, No Wheezing Gastrointestinal/Abdominal: Soft, No Tenderness, No Distention Extremity: Normal ROM, No Tenderness Neurological/Psych: Other (See NIH ) Gait: Steady ED Course And Treatment - Laboratory Results Result Diagrams: 01/25/19 20:12 01/25/19 20:12 ECG: Interpreted By Me, Viewed By Me ECG Rhythm: Sinus Rhythm Interpretation Of ECG: T wave inversion in III and F Rate From EC O2 Sat by Pulse Oximetry: 96 (ON RA) Pulse Ox Interpretation: Normal - CT Scan/US CT head Other Rad Studies (CT/US): Read By Radiologist, Radiology Report Reviewed CT/US Interpretation: EXAM: CT Head without Intravenous Contrast. CLINICAL HISTORY: Ams forehead injury. TECHNIQUE: Axial computed tomography images of the head/brain without intravenous contrast. 0.00 mGy-cm. COMPARISON: CT brain images from prior studies dated 10/30/2018 and 08/23/2018 are unavailable for comparison. The report from prior study dated 08/23/2018 was reviewed. FINDINGS: BRAIN. No acute intraparenchymal hemorrhage. No mass lesion. No CT evidence for acute territorial infarct. No midline shift or extra-axial collections. Moderate age-appropriate cerebral/cerebellar atrophy again noted. There are bilateral periventricular and subcortical white matter hypolucencies compatible with mild chronic microvascular disease. VENTRICLES: No hydrocephal us. VASCULAR: Atherosclerotic vascular plaquing seen within the carotid siphons bilaterally. ORBITS: The orbits are unremarkable. SINUSES AND MASTOIDS: The paranasal sinuses and mastoid air cells are clear. BONES: No fracture. SOFT TISSUES: Unremarkable. IMPRESSION: 1. No acute intracranial abnormality. 2. Moderate age-appropriate cerebral/cerebellar atrophy. 3. Mild chronic microvascular disease. 4. Atherosclerotic vascular plaquing within the carotid siphons bilaterally. . Electronically signed on Jan 25, 2019 10:18:25 PM EDT by: Wolfgang Trujillo M.D., MEERA Certified By ABR & CBCCT. Fellowship Trained MRI and CT Specialist. NIHSS Stroke Scale - Date/Time Evaluation Performed Date Performed: 01/25/19 Time Performed: 20:07 When Was NIHSS Performed: Baseline - How Severe is the Stoke Level of Consciousness: 0=Alert LOC to Questions: 0=Both comments correct LOC to commands: 0=Obeys both correctly Best Gaze: 0=Normal Visual: 0=No visual loss Facial: 0=Normal Motor Arm - Left: 0=No drift Motor Arm - Right: 0=No drift Motor Leg - Left: 0=No drift Motor Leg - Right: 0=No drift Limb Ataxia: 0=Absent Sensory: 0=Normal Best Language: 0=No aphasia Dysarthia: 0=Normal articulation Extinction & Inattention (Neglect): 0=Normal, no object Score: 0 Progress - Re-Evaluation Re-evaluation Note: 01/25/19 22:48 NEURO INTACT [facility] INITIAL. VSS IMPROVED D/W DR SHRUTHI WILSON BAKER BENCH WILL ADMIT - Data Reviewed Data Reviewed: Lab, Diagnostic imaging, EKG, Old records rTPA Inclusion/Exclusion - Refusal of Treatment Patient Refused Treatment: No - Inclusion Criteria for Altepase All of the below criteria for inclusion were reviewed: Yes Patient is 18 years or Older: Yes Clinical DX Ischemic Stroke Cause Neurological Deficit: Yes Time of Onset Established Less Than 270 Mins Before TX Begin: Yes Risk/Benefit Discussed With Patient/Family Member Present: Yes - Exclusion Criteria for Altepase Current Intracranial Hemorrhage: No Subarachnoid hemorrhage: No Active Internal Bleeding: No Recent (within 3 months) Intracranial or Intraspinal Surgery: No Bleeding Diathesis Including but not limited to: Not Applicable Current Severe Uncontrolled Hypertension: Yes - Warning to TPA With Conditions Following Conditions Weighed Against Anticipated Benefit: Yes Condition: Hypertension systolic BP above 175 mmHg or diastolic BP above 110 mmHg Additional Condition (For 3-4.5 Hour Window): Age Greater Than 80 Medical Decision Making Medical Decision Making: Plan: * CT head * EKG * Labs * Trandate 20 mg IVP * UA Disposition Counseled Patient/Family Regarding: Studies Performed, Diagnosis - Disposition Disposition: HOSPITALIZED Disposition Time: 22:49 Condition: SERIOUS Forms: [facility] (Belarusian) - POA Present On Arrival: Poor Glycemic Control - Clinical Impression Clinical Impression: Hypertensive emergency, no CHF - Scribe Statement The provider has reviewed the documentation as recorded by the Scribe Shiv Bird All medical record entries made by the Scribe were at my direction and personally dictated by me. I have reviewed the chart and agree that the record accurately reflects my personal performance of the history, physical exam, medical decision making, and the department course for this patient. I have also personally directed, reviewed, and agree with the discharge instructions and disposition.
[2019-01-25] MEDS ORDERED: Labetalol 25mg/5ml Syringe IVP STA (20:10)
[2019-01-25 20:19] LABS: BASO # 0.1 K/uL (0.0-0.2); BASO % 0.9 % (0.0-2.0); EOS # 0.1 K/uL (0.0-0.7); EOS % 1.1 % (0.0-4.0); HEMOGLOBIN 10.7 g/dL (11.0-16.0); LYMPH # 1.1 K/uL (1.0-4.3); LYMPH % 13.3 % (20.0-40.0); MEAN CELL VOLUME 85.7 fL (81.0-99.0); MEAN CORPUSCULAR HEMOGLOBIN 28.4 pg (27.0-31.0); MEAN CORPUSCULAR HGB CONC 33.1 g/dL (33.0-37.0); MEAN PLATELET VOLUME 8.2 fL (7.2-11.7); MONO # 0.4 K/uL (0.0-0.8); MONO % 5.5 % (0.0-10.0); NEUT # 6.3 K/uL (1.8-7.0); NEUT % 79.2 % (50.0-75.0); RBC 3.76 Mil/uL (3.80-5.20); WHITE BLOOD COUNT 7.9 K/uL (4.8-10.8)
[2019-01-25] MEDS ORDERED: Labetalol 5mg/ml (4ml) ONE (20:19)
[2019-01-25 20:34] LABS: ALB/GLOB RATIO 1.7 (1.0-2.1); ALBUMIN 4.1 g/dL (3.5-5.0); ALT/SGPT 23 U/L (9-52); AST/SGOT 30 U/L (14-36); BLOOD UREA NITROGEN 24 mg/dL (7-17); CALCIUM 9.7 mg/dl (8.6-10.4); GFR NON-AFRICAN AMERICAN > 60
[2019-01-25 20:45] LABS: SQUAMOUS EPITHIAL 2 /hpf (0-5); URINE BACTERIA RARE (<OCC); URINE BILIRUBIN NEGATIVE (NEGATIVE); URINE BLOOD NEGATIVE (NEGATIVE); URINE CLARITY Hazy (Clear); URINE COLOR Yellow (YELLOW); URINE GLUCOSE (UA) NORMAL (Normal); URINE LEUKOCYTE ESTERASE 1+ Leu/uL (Negative); URINE PROTEIN NEGATIVE (NEGATIVE); URINE UROBILINOGEN NORMAL mg/dL (0.2-1.0)
--- NOTE | 2019-01-25 22:31 | CT ---
Date of service: 01/25/2019 PROCEDURE: CT HEAD WITHOUT CONTRAST. HISTORY: AMS FOREHEAD INJ, HTN COMPARISON: Comparison is made with 10/30/2018 TECHNIQUE: Axial computed tomography images were obtained through the head/brain without intravenous contrast. Radiation dose: Total exam DLP = 1058.1 mGy-cm. This CT exam was performed using one or more of the following dose reduction techniques: Automated exposure control, adjustment of the mA and/or kV according to patient size, and/or use of iterative reconstruction technique. FINDINGS: HEMORRHAGE: No intracranial hemorrhage. BRAIN: No evidence of new mass or brain edema. Again noted is focal encephalomalacia adjacent to the frontal horn of the left lateral ventricle. Volume loss and chronic microvascular white matter ischemic changes are again noted. VENTRICLES: Unremarkable. No hydrocephalus. CALVARIUM: Unremarkable. PARANASAL SINUSES: Mild mucosal thickening in ethmoid and maxillary sinuses. MASTOID AIR CELLS: Unremarkable as visualized. No inflammatory changes. OTHER FINDINGS: None. IMPRESSION: No evidence of acute intracranial hemorrhage mass effect or midline shift. Volume loss and chronic microvascular white matter ischemic changes. Again noted is focal encephalomalacia adjacent to the frontal horn of the left lateral ventricle associated with mild dilatation of the frontal horn.
[2019-01-26 04:49] LABS: CK-MB 1.06 ng/mL (0.0-3.38)
[2019-01-26 04:54] LABS: BLOOD UREA NITROGEN 17 mg/dL (7-17); CALCIUM 7.6 mg/dl (8.6-10.4); GFR NON-AFRICAN AMERICAN > 60
[2019-01-26] MEDS ORDERED: Nitroglycerin 2% Ointment Foilpak UD TOP ONE (06:14)
[2019-01-26] MEDS: Potassium Chloride 20 mEq/15 ml LIQ UD PO SCH ×2 (06:34→07:55)
[2019-01-26 07:08] LABS: HEMOGLOBIN 10.2 g/dL (11.0-16.0); MEAN CELL VOLUME 85.8 fL (81.0-99.0); MEAN CORPUSCULAR HEMOGLOBIN 28.7 pg (27.0-31.0); MEAN CORPUSCULAR HGB CONC 33.4 g/dL (33.0-37.0); MEAN PLATELET VOLUME 8.3 fL (7.2-11.7); RBC 3.56 Mil/uL (3.80-5.20); RED CELL DISTRIBUTION WIDTH 15.5 % (11.5-14.5); WHITE BLOOD COUNT 7.5 K/uL (4.8-10.8)
[2019-01-26] MEDS ORDERED: Potassium Chloride 20 mEq ER Tab PO ONE (09:18)
[2019-01-26] MEDS: Enoxaparin 40 mg Syringe SC SCH (09:50)
--- NOTE | 2019-01-26 11:17 | RAD ---
Date of service: 01/25/2019 PROCEDURE: CHEST RADIOGRAPH, 1 VIEW HISTORY: AMS COMPARISON: Comparison is made with 10/30/2018 FINDINGS: LUNGS: No evidence of new infiltrate or consolidation in the lungs P PLEURA: No pneumothorax or pleural fluid seen. CARDIOVASCULAR: No aortic atherosclerotic calcification present. Normal. OSSEOUS STRUCTURES: No significant abnormalities. VISUALIZED UPPER ABDOMEN: Normal. OTHER FINDINGS: None. IMPRESSION: No active disease.
[2019-01-26 11:52] LABS: ALB/GLOB RATIO 1.6 (1.0-2.1); ALBUMIN 3.7 g/dL (3.5-5.0); ALT/SGPT 24 U/L (9-52); AST/SGOT 26 U/L (14-36); BLOOD UREA NITROGEN 19 mg/dL (7-17); CALCIUM 9.4 mg/dl (8.6-10.4); GFR NON-AFRICAN AMERICAN > 60
--- NOTE | 2019-01-26 23:50 | CON ---
DATE: 01/26/2019 CARDIOLOGY CONSULTATION REASON FOR CONSULTATION: Aortic stenosis. HISTORY OF PRESENT ILLNESS: The patient is an 83-year-old female who was brought to the emergency room by the family because of confusion and uncontrolled hypertension. Visual hallucinations were also reported by the family who measured blood pressure of 200/100 at home. The patient did have frontal bruising which family attributed to the patient walking accidentally into the wall. At this time, the patient gives no reliable answers to my questions, although she denied headache and chest pain. SOCIAL HISTORY: Nonsmoker. PAST MEDICAL HISTORY: History of coronary artery disease, status post coronary stent, history of paroxysmal atrial fibrillation and history of vascular dementia, history of mild aortic stenosis. CURRENT MEDICATIONS: Cozaar 100 mg once a day, Crestor 20 mg once a day, aspirin 81 mg once a day, hydrochlorothiazide 25 mg once a day, Lexapro 20 mg once a day, Lovenox 40 mg subcutaneously once a day, Norvasc 5 mg once a daily, Plavix 75 mg once a day. REVIEW OF SYSTEMS: No reported seizures or hypotension and no reported ventricular tachycardia. PHYSICAL EXAMINATION: GENERAL: The patient is an elderly female who is confused, but pleasant and does not appear to be in any distress. VITAL SIGNS: Blood pressure 176/61, heart rate 61, temperature 98, and respirations 20. HEENT: Frontal ecchymosis is noted. NECK: No JVD. CHEST: Clear. HEART: S1 and S2 regular. Grade 2/6 ejection systolic murmur at the left sternal border. ABDOMEN: Soft. EXTREMITIES: No edema. LABORATORY DATA: Today's SMA-7: Sodium 139, potassium 4.5, chloride 104, CO2 of 30, glucose 158, BUN 19, creatinine 0.8. Earlier potassium was 3. Today's hemoglobin and hematocrit 10.1 and 30.5. White count and platelet count are within normal limits. Echocardiographic study performed in August of last year revealed ejection fraction, iluf-ye-kylgtnap aortic insufficiency, nvrc-xw-sizjrlso valvular aortic stenosis, mild mitral insufficiency, and qpvihntu-je-iarjmv pulmonary hypertension. CT scan without contrast done on admission reveals no evidence of acute intracranial hemorrhage, mass effect or midline shift. Volume loss and chronic microvascular white matter ischemic changes. Again, noted focal encephalomalacia changes to the frontal horn of the left lateral ventricle associated with mild dilatation of the frontal horn. EKG this past October revealed sinus rhythm with marked sinus arrhythmia at rate of 70 with criteria for LVH. Admitting EKG could not be opened on the [facility] database and I will pursue the paper format of this EKG. ASSESSMENT: 1. Uncontrolled hypertension. 2. Defh-xw-zpjgkqim aortic stenosis with ignk-xu-esiysmyy aortic insufficiency. 3. Biqverdo-hh-qojsuj pulmonary hypertension. 4. Questionable fall, although the family attributed the patient's frontal bruise and ecchymosis to her accidentally hitting her face on the wall. 5. History of coronary stenting in the past, most likely at a different facility as none has shown up on the [facility] database going back to 2013. 6. History of paroxysmal atrial fibrillation. RECOMMENDATIONS: Continue Cozaar 100 mg once a day, Crestor 20 mg once a day, aspirin 81 mg once a day, hydrochlorothiazide 25 mg once a day, Lovenox 20 mg once a day, Norvasc 5 mg once a day, Plavix 75 mg once a day. Obtain septic workup including blood culture and urine culture and repeat head CT scan without contrast. Familia Landrum MD
[2019-01-27 09:09] LABS: BLOOD UREA NITROGEN 15 mg/dL (7-17); CALCIUM 9.6 mg/dl (8.6-10.4); GFR NON-AFRICAN AMERICAN > 60
[2019-01-27 09:17] LABS: CK-MB 1.58 ng/mL (0.0-3.38)
[2019-01-27] MEDS: Enoxaparin 40 mg Syringe SC SCH (10:06)
--- NOTE | 2019-01-27 20:03 | PN ---
DATE: 01/27/2019 SUBJECTIVE: The patient is awake and oriented today. She did report to me that she fell and her face was facing the door that is how she sustained a bruise. She has a scrapper which she does not recall his name. The patient underwent an event monitor placement recently. She lives with her and two of her sons. She denies any dizziness at this time. She appears dehydrated. PHYSICAL EXAMINATION: VITAL SIGNS: Blood pressure 181/68, heart rate 66, temperature 97.7, respirations 20. HEENT: Dry mucous membrane. NECK: No JVD. CHEST: Diminished breath sounds over the bases. HEART: S1 and S2 regular. Grade 2/6 ejection systolic murmur over left sternal border. ABDOMEN: Soft. EXTREMITIES: No edema.. LABORATORY DATA: Today's SMA-7 is within normal limit except for glucose 116, carbon dioxide of 31 and anion gap of 8. ASSESSMENT: 1. Status post a syncopal episode and a fall. 2. Uncontrolled hypertension. 3. Hgdz-lm-lfwulvir aortic stenosis with dqqk-be-qgkhziwm aortic insufficiency. 4. Kbmoftfz-ba-anqcrp pulmonary hypertension. 5. History of coronary artery disease status post coronary artery stenting in the past. 6. History of paroxysmal atrial fibrillation. RECOMMENDATIONS: Continue current Cozaar 100 mg once a day, Crestor 20 mg once a day, aspirin 81 mg once a day. Discontinue hydrochlorothiazide and increase Norvasc to 10 mg once a day. Continue Plavix 75 mg once a day. I will contact the family to inquire about the scrapper who has been taking care of Mrs. Torres and may transfer the service to him if he is available. Familia Landrum MD
--- NOTE | 2019-01-27 20:25 | HP ---
CHIEF COMPLAINT: Fall. HISTORY OF PRESENT ILLNESS: This is an 83-year-old white female who is forgetful. She is a poor historian and she is not able to give any history and physical. The patient was brought into the hospital with high blood pressure, headache, dizziness and a fall. She has a bruise on her forehead. The patient is able to ambulate. She is able to make her needs known. She is oriented x1. She is forgetful. She has headache. She has dizziness. She has no nausea, vomiting or diarrhea. She denies any history of polyuria, polydipsia or polyphagia. There is no history of hematuria or pyuria. She has no history of sneezing, itchy eyes or itchy nose. There is mild pain. There are generalized aches and pains. ALLERGIES: UNKNOWN ALLERGIES. CURRENT MEDICATIONS: Unknown. PAST MEDICAL HISTORY: Unknown. SOCIAL HISTORY: Unknown. FAMILY HISTORY: Unknown. PHYSICAL EXAMINATION: GENERAL: This is an elderly female who is calm, quiet, on one-to-one watch, confused, with no apparent distress. VITAL SIGNS: Blood pressure 178/80, pulse 74, respiratory rate 20, temperature 99. SKIN: She has a bruise on the middle of her forehead about 6 x 4 cm . HEENT: Evidence of trauma on the forehead. Normocephalic. Pupils equally reactive to light and accommodation. Oral cavity, edentulous. NECK: Supple. No JVD. No lymph node. CHEST WALL: No tenderness. No deformity. LUNGS: Clear. No rales. No rhonchi. CARDIOVASCULAR SYSTEM: S1 and S2, regular. ABDOMEN: Soft, nontender. Bowel sounds are positive. EXTREMITIES: No clubbing, cyanosis or edema. CENTRAL NERVOUS SYSTEM: Awake, alert, oriented x1. She is forgetful. She is moving all extremities. She is walking with normal gait. ASSESSMENT: 1. Fall. This is a patient who is forgetful, who is confused. She had a fall. Although she is able to move around, the circumstances of fall are not known. Rule out cardiac arrhythmia. Rule out syncope. 2. Head trauma. 3. Uncontrolled hypertension. The patient's compliance is unknown. The patient's further details about blood pressure is unknown. 4. Rule out diabetes. PLAN: Admit. Detailed orders are written. Seamus Gunter MD [facility] # [id number]
--- NOTE | 2019-01-27 23:31 | CON ---
DATE: 01/27/2019 ATTENDING PHYSICIAN: Seamus Gunter MD REASON FOR CONSULTATION: Change of mental state and head trauma. HISTORY OF PRESENT ILLNESS: The patient is an 83-year-old lady with past medical history of coronary artery disease, status post stent, atrial fibrillation, CVA, and hypertension. The patient was brought by the family. The family found that the patient has been confused, hallucinating, and has been worsening with the day before admission and the patient's blood pressure at home was 200/100 and in the emergency room, the patient's blood pressure was to 101/69. The patient is complaining of on and off dizziness. The patient states that "my blood pressure when goes up, I feel dizzy". Because of the dizziness, the patient was unstable and hit her head against the wall. Had bruises on the forehead. No cuts on her scalp. PAST MEDICAL HISTORY: As mentioned above. SOCIAL HISTORY: No smoking, ethanol or drug abuser. PAST SURGICAL HISTORY: Cholecystectomy and hysterectomy. FAMILY HISTORY: Noncontributory. REVIEW OF SYSTEMS: As per H and P and ER notes. ALLERGIES: NO KNOWN ALLERGIC REACTION TO MEDICATIONS. PHYSICAL EXAMINATION: VITAL SIGNS: Blood pressure 201/69, pulse 65, respirations 20, temperature 97.9. MENTAL STATUS: The patient is alert, awake, partially oriented to time, to the month only, not to the year and the date of the day. Partially oriented to place and person. Slow mental processing. Able to follow one-step commands, having difficulty following two-step commands. No apraxia, no nausea. No right to left confusion. CRANIAL NERVES: Pupils 2 mm, bilaterally sluggishly reactive, status post cataract surgery. No nystagmus, no double vision, no gaze preference. No facial palsy. V1 to V3 slightly decreased on the right side of the face. No field defect or threat. The patient is not fully cooperative for neurological examination because of the patient's cognitive impairment. MOTOR: No pronation drift. No cogwheel rigidity or spasticity. Five finger movement impaired. 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 Lower extremities, bilateral flexion 4+ to 5/5. Knee and ankle 5/5. Deep tendon reflexes 1 in upper extremities, absent at the knee and ankles. Plantar flexion. SENSORY: Pinprick, light touch symmetrical. Coordination: [id number]-[id number] intact. LABORATORY DATA: Reviewed. CAT scan of the brain done. I have reviewed the CAT scan. CAT scan consistent with left caudate infarct with compression with dilatation of the left lateral ventricle in addition to significant periventricular white matter disease and old right cerebellar infarct. No subdural hematoma or acute findings. IMPRESSION: Dizziness secondary to hypertension and probably the patient has dizziness. Because of unsteadiness, the patient hit her head without loss of consciousness. The patient's exam is symmetrical. No focal motor deficit. The patient has also dementia, probably secondary to vascular dementia because of significant periventricular white matter disease and parietal atrophy. Possibility of Alzheimer's disease cannot be excluded. Neuro nair, a carotid Doppler and EEG has been requested to rule out seizures and carotid stenosis. The patient will need a better blood pressure control. No further workup recommended at this point. Thank you for the consultation and Dr. Diaz will follow up with the patient tomorrow. Mehdi Suggs MD
--- NOTE | 2019-01-28 01:34 | CP.PCM.HP ---
Present on Admission - Present on Admission Any Indicators Present on Admission: No Past Patient History - Infectious Disease Hx of Infectious Diseases: None - Past Medical History & Family History Past Medical History?: Yes - Past Social History Smoking Status: Never Smoked - CARDIAC Hx Hypertension: Yes - PULMONARY Hx Respiratory Disorders: No - NEUROLOGICAL HX Cerebrovascular Accident: Yes - HEENT Hx HEENT Problems: Yes Hx Glaucoma: Yes - RENAL Hx Chronic Kidney Disease: No - ENDOCRINE/METABOLIC Hx Endocrine Disorders: No - HEMATOLOGICAL/ONCOLOGICAL Hx Blood Disorders: No - INTEGUMENTARY Hx Dermatological Problems: No - MUSCULOSKELETAL/RHEUMATOLOGICAL Hx Musculoskeletal Disorders: Yes Hx Falls: Yes - GASTROINTESTINAL Hx Gastrointestinal Disorders: No - PSYCHIATRIC Hx Substance Use: No - SURGICAL HISTORY Hx Cholecystectomy: Yes Hx Coronary Stent: Yes (2017, X3) - ANESTHESIA Hx Anesthesia: Yes Hx Anesthesia Reactions: No Meds Allergies/Adverse Reactions: Allergies Allergy/AdvReac Type Severity Reaction Status Date / Time No Known Allergies Allergy Verified 01/25/19 19:17 Results - Vital Signs Recent Vital Signs: Last Vital Signs Temp 97.5 F L 01/27/19 16:00 Pulse 59 L 01/27/19 17:30 Resp 20 01/27/19 16:00 BP 143/66 01/27/19 16:00 Pulse Ox 97 01/27/19 16:00 - Labs Result Diagrams: 01/26/19 06:54 01/27/19 08:46 Labs: Laboratory Results - last 24 hr 01/27/19 08:46 Sodium 139 Potassium 3.7 Chloride 104 Carbon Dioxide 31 H Anion Gap 8 L BUN 15 Creatinine 0.8 Est GFR ( Amer) > 60 Est GFR (Non-Af Amer) > 60 Random Glucose 116 H D Calcium 9.6 Total Creatine Kinase 77 CK-MB (Mass) 1.58 Troponin I 0.0120 Vitamin B12 646
--- NOTE | 2019-01-28 01:34 | CP.PCM.PN ---
Subjective - Date & Time of Evaluation Date of Evaluation: 01/27/19 Time of Evaluation: 09:00 - Subjective Subjective: dict Objective - Vital Signs/Intake and Output Vital Signs (last 24 hours): Temp Pulse Resp BP Pulse Ox 97.5 F L 59 L 20 143/66 97 01/27/19 16:00 01/27/19 17:30 01/27/19 16:00 01/27/19 16:00 01/27/19 16:00 Intake and Output: 01/27/19 01/28/19 18:59 06:59 Intake Total 300 Balance 300 - Medications Medications: Current Medications Amlodipine Besylate (Norvasc) 10 mg PO DAILY [facility] Last Admin: 01/27/19 14:39 Dose: 10 mg Aspirin (Ecotrin) 81 mg PO DAILY [facility] Last Admin: 01/27/19 10:06 Dose: 81 mg Clopidogrel Bisulfate (Plavix) 75 mg PO DAILY [facility] Last Admin: 01/27/19 10:06 Dose: 75 mg Enoxaparin Sodium (Lovenox) 40 mg SC DAILY [facility] Last Admin: 01/27/19 10:06 Dose: 40 mg Escitalopram Oxalate (Lexapro) 20 mg PO DAILY [facility] Last Admin: 01/27/19 10:06 Dose: 20 mg Losartan Potassium (Cozaar) 100 mg PO DAILY [facility] Last Admin: 01/27/19 10:06 Dose: 100 mg Rosuvastatin Calcium (Crestor) 20 mg PO HS [facility] Last Admin: 01/27/19 21:52 Dose: 20 mg - Labs Labs: 01/26/19 06:54 01/27/19 08:46
--- NOTE | 2019-01-28 03:06 | PN ---
DATE: 01/27/2019 SUBJECTIVE: The patient remains confused. No shortness of breath. No chest pain. PHYSICAL EXAMINATION: VITAL SIGNS: Blood pressure 143/66, pulse 67, respiratory rate 20, temperature is 97.5. LUNGS: Bilaterally clear. CARDIOVASCULAR: S1, S2, regular. ABDOMEN: Soft. ASSESSMENT: 1. Fall without injury. 2. Poorly controlled hypertension. 3. Low sodium. PLAN: CT head. Will need neurology evaluation. Seamus Gunter MD
--- NOTE | 2019-01-28 10:03 | PN ---
DATE: 01/28/2019 TIME OF EVALUATION: 7 a.m. SUBJECTIVE: The patient had an episode of dizziness and change in mental status. PHYSICAL EXAMINATION: VITAL SIGNS: Blood pressure 143/66, mean artery pressure of 91, respiratory rate 18, temperature 97.5, pulse rate 59. The patient was seen by Dr. Suggs yesterday and his consultation is appreciated. Multi-dementia, significant peripheral neuropathy. Consider history and risk of stroke process. The patient should have MRI of the brain to rule out any ischemic process in posterior cervical artery distribution. However other workup which was recommended by Dr. Suggs should be continued. The patient will be followed closely with you. Moi Diaz MD
[2019-01-28] MEDS: Enoxaparin 40 mg Syringe SC SCH (10:06)
--- NOTE | 2019-01-28 14:36 | CARD ---
APPROVED REPORT Date of service: 01/25/2019 EKG Measurement Heart [id number] <Conclusion> Sinus rhythm with marked sinus arrhythmia Possible Inferior infarct, age undetermined Abnormal ECG
--- NOTE | 2019-01-28 15:09 | MRI ---
Date of service: 01/28/2019 PROCEDURE: MRI BRAIN WITHOUT CONTRAST HISTORY: [facility] [employer] [facility]SCHE[facility] COMPARISON: None available. TECHNIQUE: Multiplanar, multisequence MR images of the brain were obtained without intravenous contrast enhancement. FINDINGS: HEMORRHAGE: None DWI: No evidence of an acute or early subacute infarction. BRAIN PARENCHYMA: No mass effect or edema. Chronic microvascular changes are seen in the periventricular and deep white matter. There is moderate atrophy. There are no acute findings VENTRICLES: Unremarkable. No hydrocephalus. CRANIUM: Unremarkable. ORBITS: Grossly unremarkable. PARANASAL SINUSES/MASTOIDS: Clear VASCULAR SYSTEM: Skull base flow voids intact. OTHER FINDINGS: None. IMPRESSION: No acute intracranial findings
--- NOTE | 2019-01-28 21:34 | PN ---
DATE: 01/28/2019 SUBJECTIVE: The patient denies any dizziness or chest pain. PHYSICAL EXAMINATION: VITAL SIGNS: Blood pressure 161/70, heart rate 69, temperature 98, respirations 20. HEENT: Frontal bruising. CHEST: Clear. HEART: S1 and S2 regular. EXTREMITIES: No edema. LABORATORY DATA: Brain MRI was performed, report is still pending. ASSESSMENT: 1. Status post fall, consider syncopal episode. 2. Prdw-ru-gxfcmara aortic stenosis or cvgx-su-mdzmptgy aortic insufficiency. 3. Xuuxvgvk-cs-ilcwrr pulmonary hypertension. 4. History of coronary artery disease, status post coronary artery stenting. 5. History of paroxysmal atrial fibrillation. RECOMMENDATIONS: I did speak to the patient's son, who informed me that the patient's ice scraper, Dr. Vick, at [facility] and he did refer her to [facility] where she underwent her invasive cardiac workup including the event monitor placement. The patient, according to the son, taken to [facility], and the patient does not recall her ice scraper's name. In the meantime, continue current Cozaar 100 mg once a day, aspirin and Plavix. Continue Crestor 20 mg once a day, subcutaneous Lovenox 20 mg once a day, Norvasc 10 mg once a day. I will follow up brain MRI and electrophysiology evaluation requested from Dr. Tran. Familia Landrum MD
--- NOTE | 2019-01-28 21:43 | CP.PCM.PN ---
Subjective - Date & Time of Evaluation Date of Evaluation: 01/28/19 Time of Evaluation: 08:20 - Subjective Subjective: dictated Objective - Vital Signs/Intake and Output Vital Signs (last 24 hours): Temp Pulse Resp BP Pulse Ox 98.3 F 68 20 151/75 H 98 01/28/19 15:46 01/28/19 15:46 01/28/19 15:46 01/28/19 15:46 01/28/19 15:46 - Medications Medications: Current Medications Amlodipine Besylate (Norvasc) 10 mg PO DAILY [facility] Last Admin: 01/28/19 10:06 Dose: 10 mg Aspirin (Ecotrin) 81 mg PO DAILY [facility] Last Admin: 01/28/19 10:06 Dose: 81 mg Clopidogrel Bisulfate (Plavix) 75 mg PO DAILY [facility] Last Admin: 01/28/19 10:06 Dose: 75 mg Enoxaparin Sodium (Lovenox) 40 mg SC DAILY [facility] Last Admin: 01/28/19 10:06 Dose: 40 mg Escitalopram Oxalate (Lexapro) 20 mg PO DAILY [facility] Last Admin: 01/28/19 10:06 Dose: 20 mg Losartan Potassium (Cozaar) 100 mg PO DAILY [facility] Last Admin: 01/28/19 10:06 Dose: 100 mg Rosuvastatin Calcium (Crestor) 20 mg PO HS [facility] Last Admin: 01/27/19 21:52 Dose: 20 mg - Labs Labs: 01/26/19 06:54 01/27/19 08:46
--- NOTE | 2019-01-28 23:54 | CP.PCM.CON ---
History of Present Illness - History of Present Illness History of Present Illness: Re: dizziness/syncope Cardiac -Electrophysiology consult Chart/imaging reviewed patient seen examined Admitted with a history of 'confusion hallucination and dizziness" No history of loss of consciousness chest pain palpitations dyspnea Past medical Hypertension-systemic Coronary artery disease: S/p stents 2017 Cardiovascular disease Atrial fibrillation: paroxysmal Past surgery: Cholecystectomy Mammoplasty No history of smoking substance abuse Exam No distress Normal venous pressures Normal carotids No goiter Clear lungs No S3 No edema EKG: sinus Labs: noted; Troponin 0.01 MsLinda Torres has periods of dizziness, confusion temporally associated with elevated systemic hypertension There is no definitive suggestion of a cardiovascular/hemodynamic/rhythm basis for her difficult to define symptoms Suggest Continue monitoring Past Patient History - Infectious Disease Hx of Infectious Diseases: None - Past Medical History & Family History Past Medical History?: Yes - Past Social History Smoking Status: Never Smoked - CARDIAC Hx Hypertension: Yes - PULMONARY Hx Respiratory Disorders: No - NEUROLOGICAL HX Cerebrovascular Accident: Yes - HEENT Hx HEENT Problems: Yes Hx Glaucoma: Yes - RENAL Hx Chronic Kidney Disease: No - ENDOCRINE/METABOLIC Hx Endocrine Disorders: No - HEMATOLOGICAL/ONCOLOGICAL Hx Blood Disorders: No - INTEGUMENTARY Hx Dermatological Problems: No - MUSCULOSKELETAL/RHEUMATOLOGICAL Hx Musculoskeletal Disorders: Yes Hx Falls: Yes - GASTROINTESTINAL Hx Gastrointestinal Disorders: No - PSYCHIATRIC Hx Substance Use: No - SURGICAL HISTORY Hx Cholecystectomy: Yes Hx Coronary Stent: Yes (2017, X3) - ANESTHESIA Hx Anesthesia: Yes Hx Anesthesia Reactions: No Meds Allergies/Adverse Reactions: Allergies Allergy/AdvReac Type Severity Reaction Status Date / Time No Known Allergies Allergy Verified 01/25/19 19:17 - Medications Medications: Current Medications Amlodipine Besylate (Norvasc) 10 mg PO DAILY [facility] Last Admin: 01/28/19 10:06 Dose: 10 mg Aspirin (Ecotrin) 81 mg PO DAILY [facility] Last Admin: 01/28/19 10:06 Dose: 81 mg Clopidogrel Bisulfate (Plavix) 75 mg PO DAILY [facility] Last Admin: 01/28/19 10:06 Dose: 75 mg Enoxaparin Sodium (Lovenox) 40 mg SC DAILY [facility] Last Admin: 01/28/19 10:06 Dose: 40 mg Escitalopram Oxalate (Lexapro) 20 mg PO DAILY [facility] Last Admin: 01/28/19 10:06 Dose: 20 mg Losartan Potassium (Cozaar) 100 mg PO DAILY [facility] Last Admin: 01/28/19 10:06 Dose: 100 mg Rosuvastatin Calcium (Crestor) 20 mg PO HS [facility] Last Admin: 01/28/19 22:02 Dose: 20 mg Results - Vital Signs Recent Vital Signs: Last Vital Signs Temp 98.3 F 01/28/19 15:46 Pulse 68 01/28/19 15:46 Resp 20 01/28/19 15:46 BP 151/75 H 01/28/19 15:46 Pulse Ox 98 01/28/19 15:46 - Labs Result Diagrams: 01/26/19 06:54 01/27/19 08:46
--- NOTE | 2019-01-29 02:27 | PN ---
DATE: 01/28/2019 SUBJECTIVE: The patient, Melissa, had MRI which is negative. She is awake, alert. She is confused. She needs physiotherapy. She is on physiotherapy. No nausea, vomiting. PHYSICAL EXAMINATION: VITAL SIGNS: Blood pressure 151/75, pulse 68, respiratory rate 20, temperature 98.3. LUNGS: Clear. CARDIOVASCULAR SYSTEM: S1, S2. Regular. ABDOMEN: Soft. CENTRAL NERVOUS SYSTEM: The patient is forgetful. ASSESSMENT: 1. Fall, head injury, rule out underlying dementia. 2. Hypertension. 3. Osteoarthritis. PLAN: MRI is negative. The patient is waiting to be accepted to subacute rehab. Upon acceptance, she is stable for discharge. Seamus Gunter MD
[2019-01-29] MEDS: Enoxaparin 40 mg Syringe SC SCH (09:34)
--- NOTE | 2019-01-29 09:42 | PN ---
DATE: 01/29/2019 TIME OF EVALUATION: 07:00 a.m. NEUROLOGICAL PROBLEM: Change in mental status. Possible seizures. PHYSICAL EXAMINATION: VITAL SIGNS: Blood pressure 121/77, mean artery pressure of 91, respiratory rate 18, pulse rate 110, temperature 98.1. GENERAL: The patient is more awake and alert. Speech is fluent, follows one-step command. Seems to have some visual hallucination at present. Rest of the examination, which is unchanged. Moves all four extremities. Reflexes are decreased. Plantars are upgoing. DIAGNOSTIC DATA: 1. Recent MRI of the brain has been reviewed. No acute ischemic process noted at the posterior cerebral artery distribution. 2. Electroencephalogram shows decreased slow activities without any paroxysmal activities. PLAN: Continue the present management. The patient is medically stable. The patient can be discharged and should have a followup visit with me as outpatient. Moi Diaz MD
--- NOTE | 2019-01-29 12:17 | VASCLAB ---
Date of service: 01/28/2019 PROCEDURE: Carotid Duplex Exam. HISTORY: SYNCOPE COMPARISON: None available. TECHNIQUE: Grayscale and duplex Doppler evaluation of the cervical carotid and vertebral arteries were performed. The common carotid, carotid bifurcations and cervical Internal Carotid Artery (ICA) and proximal External Carotid Artery (ECA) were evaluated. The vertebral arteries were evaluated for gross patency and flow direction. Report prepared by Sylvain Faith, BS, RVT FINDINGS: RIGHT CAROTID ARTERIES: 1. Common Carotid Artery: No significant focal plaque formation of the right common carotid artery. Maximum Peak Systolic velocity: 71 cm/sec: End-diastolic velocity 13 cm/sec. 2. Carotid Bifurcation: plaque formation. Maximum Peak Systolic velocity: 56 cm/sec: End-diastolic velocity 11 cm/sec. 3. Internal Carotid Artery: Plaque description: 3.1. Proximal Segment: Peak systolic velocity 105 cm/sec: End-diastolic velocity 24 cm/sec - % stenosis 0-15% 3.2. Middle Segment: Peak systolic velocity 63 cm/sec: End-diastolic velocity 13 cm/sec - % stenosis 0-15% 3.3. Distal Segment: Peak systolic velocity 97 cm/sec: End-diastolic velocity 21 cm/sec - % stenosis 0-15% 4. External Carotid Artery: No significant focal plaque formation. Peak systolic velocity 108 cm/sec 5. ICA/CCA Ratio: 1.5 LEFT CAROTID ARTERIES: 1. Common Carotid Artery: No significant focal plaque formation of the left common carotid artery. Maximum Peak Systolic velocity: 52 cm/sec: End-diastolic velocity 7 cm/sec. 2. Carotid Bifurcation: plaque formation. Maximum Peak Systolic velocity: 68 cm/sec: End-diastolic velocity 0 cm/sec. 3. Internal Carotid Artery: Plaque description: 3.1. Proximal Segment: Peak systolic velocity 62 cm/sec: End-diastolic velocity 21 cm/sec - % stenosis 0-15% 3.2. Middle Segment: Peak systolic velocity 72 cm/sec: End-diastolic velocity 18 cm/sec - % stenosis 0-15% 3.3. Distal Segment: Peak systolic velocity 52 cm/sec: End-diastolic velocity 8 cm/sec - % stenosis 0-15% 4. External Carotid Artery: No significant focal plaque formation. Peak systolic velocity 68 cm/sec 5. ICA/CCA Ratio: 1.4 VERTEBRAL ARTERIES: 1. Right Vertebral Artery: The right vertebral artery flow direction is antegrade. 2. Left Vertebral Artery: The left vertebral artery flow direction is antegrade. OTHER FINDINGS: 1. Right Brachial Blood pressure: mmHg. 2. Left Brachial Blood pressure: mmHg. 3. No atherosclerotic calcification present IMPRESSION: RIGHT: Duplex scan does not suggest hemodynamically significant stenosis of the right extracranial carotid arteries. LEFT: Duplex scan does not suggest hemodynamically significant stenosis of the left extracranial carotid arteries.
[2019-01-29 17:06] VITALS: BP 109/62; PULSE 78; RESP 18; TEMP 97.7; O2SAT 95
--- NOTE | 2019-01-29 18:25 | CP.PCM.PN ---
Subjective - Date & Time of Evaluation Date of Evaluation: 01/29/19 Time of Evaluation: 18:25 - Subjective Subjective: alert, awake, no acute distress, BP controlled. Objective - Vital Signs/Intake and Output Vital Signs (last 24 hours): Temp Pulse Resp BP Pulse Ox 97.7 F 78 18 109/62 95 01/29/19 15:25 01/29/19 15:25 01/29/19 15:25 01/29/19 15:25 01/29/19 15:25 Intake and Output: 01/29/19 01/29/19 06:59 18:59 Intake Total 480 Balance 480 - Medications Medications: Current Medications Amlodipine Besylate (Norvasc) 10 mg PO DAILY [facility] Last Admin: 01/29/19 09:28 Dose: 10 mg Aspirin (Ecotrin) 81 mg PO DAILY [facility] Last Admin: 01/29/19 09:28 Dose: 81 mg Clopidogrel Bisulfate (Plavix) 75 mg PO DAILY [facility] Last Admin: 01/29/19 09:28 Dose: 75 mg Enoxaparin Sodium (Lovenox) 40 mg SC DAILY [facility] Last Admin: 01/29/19 09:34 Dose: 40 mg Escitalopram Oxalate (Lexapro) 20 mg PO DAILY [facility] Last Admin: 01/29/19 09:29 Dose: 20 mg Losartan Potassium (Cozaar) 100 mg PO DAILY [facility] Last Admin: 01/29/19 09:29 Dose: 100 mg Rosuvastatin Calcium (Crestor) 20 mg PO HS [facility] Last Admin: 01/28/19 22:02 Dose: 20 mg - Labs Labs: 01/26/19 06:54 01/27/19 08:46 Assessment and Plan - Assessment and Plan (Free Text) Assessment: 83 year old female admitted with uncontrolled HTN, AMS, seen and examined. Alert , awake, follows commands. As per family they want to take her home. The son was informed about the discharge plan, will be coming later to take her home. Discussed with DR Gunter, plan to discharge home today. Advised to follow up with PMD in 1 week.
--- NOTE | 2019-01-29 21:38 | CP.PCM.DIS ---
Provider - Provider Date of Admission: 01/26/19 14:44 Attending physician: Seamus Gunter MD Consults: 01/26/19 09:22 Cardiology Consult Routine Comment: Consulting Provider: Familia Landrum Consulting Physician: Familia Landrum Reason for Consult: chest pain 01/26/19 13:43 Neurology Consult Routine Comment: Consulting Provider: Moi Diaz Consulting Physician: Moi Diaz Reason for Consult: AMS s/p fall 01/27/19 14:10 Physician Consult Routine Comment: Consulting Provider: Gaby Tran Consulting Physician: Gaby Tran Reason for Consult: Event moniter- Syncope Time Spent in preparation of Discharge (in minutes): 30 Hospital Course - Lab Results Lab Results: Micro Results 01/26/19 16:30 Blood-Venous Blood Culture - Preliminary NO GROWTH AFTER 3 DAYS 01/26/19 16:00 Blood-Venous Blood Culture - Preliminary NO GROWTH AFTER 3 DAYS 01/26/19 22:29 Urine Random Urine Culture - Final No Growth (<1,000 CFU/ML) Most Recent Lab Values WBC 7.5 K/uL (4.8-10.8) 01/26/19 06:54 RBC 3.56 Mil/uL (3.80-5.20) L 01/26/19 06:54 Hgb 10.2 g/dL (11.0-16.0) L 01/26/19 06:54 Hct 30.5 % (34.0-47.0) L 01/26/19 06:54 MCV 85.8 fL (81.0-99.0) 01/26/19 06:54 MCH 28.7 pg (27.0-31.0) 01/26/19 06:54 MCHC 33.4 g/dL (33.0-37.0) 01/26/19 06:54 RDW 15.5 % (11.5-14.5) H 01/26/19 06:54 Plt Count 207 K/uL (130-400) 01/26/19 06:54 MPV 8.3 fL (7.2-11.7) 01/26/19 06:54 Neut % (Auto) 79.2 % (50.0-75.0) H 01/25/19 20:12 Lymph % (Auto) 13.3 % (20.0-40.0) L 01/25/19 20:12 [place] % (Auto) 5.5 % (0.0-10.0) 01/25/19 20:12 Eos % (Auto) 1.1 % (0.0-4.0) 01/25/19 20:12 Baso % (Auto) 0.9 % (0.0-2.0) 01/25/19 20:12 Neut # (Auto) 6.3 K/uL (1.8-7.0) 01/25/19 20:12 Lymph # (Auto) 1.1 K/uL (1.0-4.3) 01/25/19 20:12 [place] # (Auto) 0.4 K/uL (0.0-0.8) 01/25/19 20:12 Eos # (Auto) 0.1 K/uL (0.0-0.7) 01/25/19 20:12 Baso # (Auto) 0.1 K/uL (0.0-0.2) 01/25/19 20:12 Sodium 139 mmol/L (132-148) 01/27/19 08:46 Potassium 3.7 mmol/L (3.6-5.2) 01/27/19 08:46 Chloride 104 mmol/L (98-107) 01/27/19 08:46 Carbon Dioxide 31 mmol/L (22-30) H 01/27/19 08:46 Anion Gap 8 (10-20) L 01/27/19 08:46 BUN 15 mg/dL (7-17) 01/27/19 08:46 Creatinine 0.8 mg/dL (0.7-1.2) 01/27/19 08:46 Est GFR ( Amer) > 60 01/27/19 08:46 Est GFR (Non-Af Amer) > 60 01/27/19 08:46 Random Glucose 116 mg/dL (65-105) H D 01/27/19 08:46 Calcium 9.6 mg/dl (8.6-10.4) 01/27/19 08:46 Total Bilirubin 0.4 mg/dL (0.2-1.3) 01/26/19 11:25 AST 26 U/L (14-36) 01/26/19 11:25 ALT 24 U/L (9-52) 01/26/19 11:25 Alkaline Phosphatase 51 U/L (38-126) 01/26/19 11:25 Total Creatine Kinase 77 U/L (30-135) 01/27/19 08:46 CK-MB (Mass) 1.58 ng/mL (0.0-3.38) 01/27/19 08:46 Troponin I 0.0120 ng/mL (0.00-0.120) 01/27/19 08:46 Total Protein 5.9 g/dL (6.3-8.3) L 01/26/19 11:25 Albumin 3.7 g/dL (3.5-5.0) 01/26/19 11:25 Globulin 2.2 gm/dL (2.2-3.9) 01/26/19 11:25 Albumin/Globulin Ratio 1.6 (1.0-2.1) 01/26/19 11:25 Vitamin B12 646 pg/mL (239-931) 01/27/19 08:46 Urine Color Yellow (YELLOW) 01/25/19 20:30 Urine Clarity Hazy (Clear) 01/25/19 20:30 Urine pH 6.0 (5.0-8.0) 01/25/19 20:30 Ur Specific [place] 1.009 (1.003-1.030) 01/25/19 20:30 Urine Protein Negative mg/dL (NEGATIVE) 01/25/19 20:30 Urine Glucose (UA) Normal mg/dL (Normal) 01/25/19 20:30 Urine Ketones Negative mg/dL (NEGATIVE) 01/25/19 20:30 Urine Blood Negative (NEGATIVE) 01/25/19 20:30 Urine Nitrate Negative (NEGATIVE) 01/25/19 20:30 Urine Bilirubin Negative (NEGATIVE) 01/25/19 20:30 Urine Urobilinogen Normal mg/dL (0.2-1.0) 01/25/19 20:30 Ur Leukocyte Esterase 1+ [place]/uL (Negative) H 01/25/19 20:30 Urine WBC (Auto) 1 /hpf (0-5) 01/25/19 20:30 Urine RBC (Auto) 1 /hpf (0-3) 04/05/19 20:30 Ur Squamous Epith Cells 2 /hpf (0-5) 01/25/19 20:30 Urine Bacteria Rare (<OCC) 01/25/19 20:30 Discharge Plan - Discharge Medications Prescriptions: Losartan [Cozaar] 100 mg PO DAILY #30 tab - Follow Up Plan Condition: SERIOUS Disposition: HOME/ ROUTINE Instructions: Heart Healthy Diet, DASH Diet, Altered Mental Status (DC), Losartan, Hypertension (DC) Additional Instructions: Follow up with PMD in 1 week resume present medications/added Cozaar Seguimiento con PMD en 1 semana. reanudar los medicamentos presentes / Cozaar aadido Referrals: Seamus Gunter MD [Staff Provider] -
--- NOTE | 2019-01-29 21:48 | PN ---
DATE: 01/29/2019 SUBJECTIVE: The patient is at times confused. No reported arrhythmia. PHYSICAL EXAMINATION: VITAL SIGNS: Blood pressure 115/76, heart rate 101, temperature 97.5, and respirations 20. HEENT: Normocephalic. CHEST: Clear. HEART: S1 and S2, regular. EXTREMITIES: Trace leg edema. The patient was evaluated by Dr. Tran, the internet sales manager, and according to Dr. Tran, there is no definitive suggestion of cardiovascular/hemodynamic/ difficult to define symptoms, and suggests continued monitoring. A brain MRI performed yesterday, no acute intracranial findings. ASSESSMENT: 1. Status post a syncopal episode. 2. History of coronary artery disease, status post coronary stenting. 3. Svxe-at-jzvunbfz aortic stenosis with tzgn-[id number] aortic insufficiency. 4. Qbzfksfi-sx-znzish pulmonary hypertension. 5. History of paroxysmal atrial fibrillation. RECOMMENDATIONS: Continue Cozaar 100 mg once a day, Crestor 20 mg once a day, aspirin 81 mg once a day, Lovenox 40 mg subcutaneously once a day, Norvasc 10 mg once a day, and Plavix 75 mg once a day. Familia Landrum MD
--- NOTE | 2019-01-30 04:06 | DS ---
DISCHARGE DIAGNOSES: 1. Fall. 2. Hypertension. 3. Dehydration. HISTORY OF PRESENT ILLNESS: This is an 83-year-old white female who had a fall, had generalized debility, had a bruise on the forehead. The patient was admitted to the floor. Started on neuro check. Fall, seizure precaution. Physical therapy, and the patient's condition improved. She felt better. She was for subacute rehab. Later on, family opted to go with home therapy, and the patient is stable. She is for discharge. PHYSICAL EXAMINATION: VITAL SIGNS: Blood pressure 109/62, pulse 78, respiratory rate 18, temperature 97.7. LUNGS: Clear. ABDOMEN: Soft. CENTRAL NERVOUS SYSTEM: The patient is forgetful. PLAN: Discharge the patient, monitor, outpatient followup. Seaums Gunter MD
== END 2019-01-29 18:34 | disposition home or self-care (01) | DRG 305 ==
LOC: C.ER 19:04 → C.6T 22:50 → OBSVTOIN 01-26 14:44 → C.6T 01-28 17:10
PROVIDERS: ADMIT Internal Medicine; ATTEND Internal Medicine
DX: I16.1 Hypertensive emergency (principal); I25.10 Atherosclerotic heart disease of native coronary artery without angina pectoris; I27.20 Pulmonary hypertension, unspecified; H40.9 Unspecified glaucoma; F01.50 Vascular dementia, unspecified severity, without behavioral disturbance, psychotic disturbance, mood disturbance, and anxiety; E86.0 Dehydration; M19.90 Unspecified osteoarthritis, unspecified site; Z95.5 Presence of coronary angioplasty implant and graft; I35.2 Nonrheumatic aortic (valve) stenosis with insufficiency; I48.0 Paroxysmal atrial fibrillation; I65.29 Occlusion and stenosis of unspecified carotid artery